=== PATIENT | female | born 1945 | race Caucasian/White ===

== ENCOUNTER 2019-03-04 10:11 | Emergency (ER) | payer OTHER ==
--- OUTSIDE RECORDS SUMMARY | 2019-03-04 10:37 | XMS REPORT ---
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
--- OUTSIDE RECORDS SUMMARY | 2019-03-04 10:37 | XMS REPORT ---
:1945 Author Organization eClinicalWorks Care Team Providers Name Role Phone Payton, Na Provider Role Unavailable Allergies, Adverse Reactions, Alerts Substance Reaction Event Type N.K.D.A. 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 Problem HTN (hypertension) I10 Active Problem Osteoarthritis of cervical spine, M47.812 Active unspecified spinal osteoarthritis complication status Problem Hyperlipidemia E78.5 Active Assessment Elevated blood pressure reading I10 Active with diagnosis of hypertension Problem Unspecified hearing loss H91.90 Active Problem 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
--- OUTSIDE RECORDS SUMMARY | 2019-03-04 10:37 | XMS REPORT ---
:1945 Author Organization eClinicalWorks Care Team Providers Name Role Phone Payton, Na Provider Role Unavailable Allergies, Adverse Reactions, Alerts Substance Reaction Event Type N.K.D.A. 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
--- OUTSIDE RECORDS SUMMARY | 2019-03-04 10:37 | XMS REPORT ---
:1945 Author Organization eClinicalWorks Care Team Providers Name Role Phone Payton, Na Provider Role Unavailable Allergies, Adverse Reactions, Alerts Substance Reaction Event Type N.K.D.A. 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 Problem HTN (hypertension) I10 Active Problem Osteoarthritis of cervical spine, M47.812 Active unspecified spinal osteoarthritis complication status Problem Hyperlipidemia E78.5 Active Assessment Elevated blood pressure reading I10 Active with diagnosis of hypertension Problem Unspecified hearing loss H91.90 Active Problem 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 Medications Medication Code Code Instructions Start End Status Dosage System Date Date Hydrochlorothiazide [facility] 32290533073 25 MG Orally Inactive TAKE 1 Once a day TABLET BY MOUTH ONCE A DAY Losartan Potassium ND 65097352858 25 MG Orally Mar 22, Inactive 1 tablet Once a day 2017 Diclofenac Sodium [facility] 01720002859 75 MG Active TAKE 1 TABLET BY MOUTH TWICE A DAY Simvastatin [facility] 64486033355 20 MG Orally Active TAKE 1 Once a day TABLET BY MOUTH EVERY DAY Losartan [facility] 05110210094 50-12.5 MG Sept Active 1 tablet Potassium-HCTZ Orally Once a 14, day 2018 Results No Known Results Immunizations Vaccine Administration Date FluAD May 03, 2018 Summary Purpose eClinicalWorks Submission
--- OUTSIDE RECORDS SUMMARY | 2019-03-04 10:37 | XMS REPORT ---
:1945 Author Organization eClinicalWorks Care Team Providers Name Role Phone Payton, Na Provider Role Unavailable Allergies, Adverse Reactions, Alerts Substance Reaction Event Type N.K.D.A. 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 Assessment Other fatigue R53.83 Active Assessment Dizziness R42 Active Problem HTN (hypertension) I10 Active Problem Osteoarthritis of cervical spine, M47.812 Active unspecified spinal osteoarthritis complication status Problem Hyperlipidemia E78.5 Active Assessment Elevated blood pressure reading I10 Active with diagnosis of hypertension Problem Unspecified hearing loss H91.90 Active Problem 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 Medications Medication Code Code Instructions Start End Status Dosage System Date Date Losartan [facility] 88561497763 50-12.5 MG Active 1 tablet Potassium-HCTZ Orally Once a day Simvastatin [facility] 72630475861 20 MG Orally Active TAKE 1 Once a day TABLET BY MOUTH EVERY DAY Results Name Result Date Reference Range Unit Abnormality Flag Lipid Profile ----HDL Cholesterol 46 69991719 40-60 mg/dL ----LDL Cholesterol, 64 21631338 <130 Calculated ----Cholesterol/HDL Ratio 3.26 20190211 ----Cholesterol Level 150 64300042 <200 mg/dL ----Triglycerides Level 198 69439125 <150 mg/dL H Hemoglobin A1c CBC with Automated Diff ----Basophils % 1.1 07472291 0-1.3 % ----Eosinophils % 3.3 69571744 0-4.4 % ----Absolute Lymphocytes 2.0 09356737 0.7-4.9 (CBC) ----Absolute Neutrophil 2.4 24461849 1.8-8.0 ----Red Cell Distribution 14.0 41931213 12.1-15.2 % Width ----Absolute Eosinophils 0.2 23938823 0-0.5 ----Platelets 205 73003505 152-406 ----Absolute Monocytes 0.8 60287380 0.1-1.3 ----MCHC 33.5 45527371 32.0-36.0 g/dL ----MCH 31.0 66820949 27.0-35.0 pg ----MCV 92.5 20190211 80-100 fL ----Neutrophils % 43.5 50588395 41.7-73.7 % ----MPV 9.6 33453249 7.6-11.3 fL ----Monocytes % 15.3 95113457 3.3-12.3 % H ----Lymphocytes % 36.8 02503550 15.3-44.8 % ----Absolute Basophils 0.1 33724827 0-0.5 ----White Blood Count 5.5 20190211 4.3-10.9 ----RBC Red Blood Cell Count 4.58 20190211 3.86-4.86 M/ul ----Hemoglobin 14.2 82537915 12.0-15.0 g/dL ----Hematocrit 42.4 75300590 36.0-45.0 % Comprehensive Metabolic Panel ----Creatinine 0.78 20190211 0.55-1.3 mg/dL ----BUN Blood Urea Nitrogen 15 20190211 7-18 mg/dL ----AST/SGOT 19 20190211 15-37 U/L ----Glomerular Filtration 73 20190211 =/>90 mL L Rate ----Alkaline Phosphatase 54 20190211 45-117 U/L ----Bilirubin Total 0.5 81981488 0.2-1.0 mg/dL ----ALT/SGPT 25 20190211 12-78 U/L ----Albumin 3.7 62005470 3.4-5.0 g/dL ----Bicarbonate 27 20190211 21-32 mmol/L ----Globulin 4.1 24564513 2.3-3.5 g/dL H ----Glucose Level 120 82874605 74-106 mg/dL H ----Calcium Level 8.9 16687517 8.5-10.1 mg/dL ----Potassium 3.7 20190211 3.5-5.1 mmol/L ----Protein, Total 7.8 20190211 6.4-8.2 g/dL ----Chloride Level 108 20190211 98-107 mmol/L H ----Sodium Level 142 20190211 136-145 mmol/L ----Albumin/Globulin Ratio 0.9 20190211 1.1-1.8 L TSH Thyroid Stimulating Hormone ----Thyroid Stimulating 3.210 20190211 0.360-3.740 [iU]/L Hormone Summary Purpose eClinicalWorks Submission
--- OUTSIDE RECORDS SUMMARY | 2019-03-04 10:37 | XMS REPORT ---
[...] Medications Medication Code Code Instructions Start End Date Status Dosage System Date Losartan [facility] 10086704767 50-12.5 MG May 03, Active 1 tablet Potassium-HCTZ Orally Once a 2017 day Results No Known Results Summary Purpose eClinicalWorks Submission
--- OUTSIDE RECORDS SUMMARY | 2019-03-04 10:37 | XMS REPORT ---
:1945 Author Organization eClinicalWorks Care Team Providers Name Role Phone Tata, Deana Provider Role Unavailable Allergies, Adverse Reactions, Alerts Substance Reaction Event Type N.K.D.A. 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 Problem HTN (hypertension) I10 Active Problem Osteoarthritis of cervical spine, M47.812 Active unspecified spinal osteoarthritis complication status Problem Hyperlipidemia E78.5 Active Assessment Elevated blood pressure reading I10 Active with diagnosis of hypertension Problem Unspecified hearing loss H91.90 Active Problem 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 Medications Medication Code Code Instructions Start End Status Dosage System Date Date Diclofenac Sodium [facility] 94262748761 75 MG Active TAKE 1 TABLET BY MOUTH TWICE A DAY Losartan Potassium [facility] 56330821538 25 MG Orally Mar 22, Active 1 tablet Once a day 2017 Simvastatin [facility] 88244599268 20 MG Orally Active TAKE 1 Once a day TABLET BY MOUTH EVERY DAY Hydrochlorothiazide [facility] 19175587084 25 MG Orally Active TAKE 1 Once a day TABLET BY MOUTH ONCE A DAY Results Name Result Date Reference Range Unit Abnormality Flag Lipid Profile ----HDL Cholesterol 43 47849794 40-60 mg/dL ----LDL Cholesterol, 72 70160731 <130 Calculated ----Cholesterol/HDL Ratio 3.49 85149759 ----Cholesterol Level 150 38881101 <200 mg/dL ----Triglycerides Level 177 81564650 <150 mg/dL H CBC with Automated Diff ----Basophils % 0.9 97086475 0-1.3 % ----Eosinophils % 2.9 65318248 0-4.4 % ----Absolute Lymphocytes 1.8 17804217 0.7-4.9 (CBC) ----Absolute Neutrophil 5.5 89301641 1.8-8.0 ----Red Cell Distribution 14.0 05117014 12.1-15.2 % Width ----Absolute Eosinophils 0.3 73049338 0-0.5 ----Platelets 212 98761057 152-406 ----Absolute Monocytes 1.0 46451917 0.1-1.3 ----MCHC 34.6 54652775 32.0-36.0 g/dL ----MCH 31.7 09331860 27.0-35.0 pg ----MCV 91.7 70875109 80-100 fL ----Neutrophils % 63.4 69729212 41.7-73.7 % ----MPV 9.7 01945289 7.6-11.3 fL ----Monocytes % 11.5 85937702 3.3-12.3 % ----Lymphocytes % 21.3 47070078 15.3-44.8 % ----Absolute Basophils 0.1 28366445 0-0.5 ----White Blood Count 8.7 71775899 4.3-10.9 ----RBC Red Blood Cell Count 4.49 85245868 3.86-4.86 M/ul ----Hemoglobin 14.2 20985428 12.0-15.0 g/dL ----Hematocrit 41.2 82193544 36.0-45.0 % Comprehensive Metabolic Panel ----Creatinine 0.80 17755851 0.55-1.3 mg/dL ----BUN Blood Urea Nitrogen 10 55523167 7-18 mg/dL ----AST/SGOT 25 76225065 15-37 U/L ----Glomerular Filtration 71 67978320 =/>90 mL L Rate ----Alkaline Phosphatase 63 75893708 45-117 U/L ----Bilirubin Total 0.5 80531985 0.2-1.0 mg/dL ----ALT/SGPT 24 49655061 12-78 U/L ----Albumin 3.6 84914070 3.4-5.0 g/dL ----Bicarbonate 29 91429828 21-32 mmol/L ----Globulin 3.9 43925365 2.3-3.5 g/dL H ----Glucose Level 135 71607227 74-106 mg/dL H ----Potassium 3.6 20180325 3.5-5.1 mmol/L ----Calcium Level 8.8 20180325 8.5-10.1 mg/dL ----Protein, Total 7.5 20180325 6.4-8.2 g/dL ----Chloride Level 106 20180325 98-107 mmol/L ----Sodium Level 143 20180325 136-145 mmol/L ----Albumin/Globulin Ratio 0.9 20180325 1.1-1.8 L Summary Purpose eClinicalWorks Submission
--- OUTSIDE RECORDS SUMMARY | 2019-03-04 10:37 | XMS REPORT ---
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
--- NOTE | 2019-03-04 11:07 | EKG ---
Test Date: 2019-03-04 Test Time: 10:22:43 Cartography Professor: SIVAN MEASUREMENT RESULTS: Intervals: Rate: 75 ME: 164 QRSD: 118 QT: 402 QTc: 448 [place]: P: 56 ME: 164 QRS: -20 T: 42 INTERPRETIVE STATEMENTS: Normal sinus rhythm Low voltage QRS Right bundle branch block Abnormal ECG Compared to ECG 02/19/2017 08:50:58 No significant changes Electronically Signed On 03-04-19 11:07:04 CDT by Juno Carpio
[2019-03-04 12:01] LABS: Protime INR 1.06
[2019-03-04 12:03] LABS: Absolute Lymphocytes (CBC) 1.7 K/uL (0.7-4.9); Basophils % 0.9 % (0-1.3); Eosinophils % 2.3 % (0-4.4); Hematocrit 39.9 % (36.0-45.0); MPV 9.6 fL (7.6-11.3); Monocytes % 15.6 % (3.3-12.3)
[2019-03-04 12:16] LABS: ALT/SGPT 24 U/L (12-78); AST/SGOT 21 U/L (15-37); Albumin 3.7 g/dL (3.4-5.0); Alkaline Phosphatase 57 U/L (45-117); BUN Blood Urea Nitrogen 13 mg/dL (7-18); Bicarbonate 27 mmol/L (21-32); Bilirubin Direct 0.2 mg/dL (0-0.2); Bilirubin Total 0.5 mg/dL (0.2-1.0); Glucose Level 102 mg/dL (74-106); Magnesium 2.4 mg/dL (1.8-2.4); NT PRO-BNP 46 pg/mL (<125); Potassium 3.6 mmol/L (3.5-5.1); Protein, Total 7.7 g/dL (6.4-8.2); Sodium Level 139 mmol/L (136-145); Troponin (Emerg Dept Use Only) < 0.02 ng/mL (0.0-0.045)
[2019-03-04 12:26] LABS: Blood Morphology Comment NOT SEEN (NOT SEEN); Platelet Estimate ADEQ; Urine White Blood Cell Casts OK
--- NOTE | 2019-03-04 12:27 | RAD REPORT ---
EXAM DESCRIPTION: RAD - Chest Single View - 03/04/2019 12:22 pm CLINICAL HISTORY: Chest pain;Cough Chest pain. COMPARISON: CHEST SINGLE VIEW dated 03/30/2014; CHEST SINGLE VIEW dated 10/02/2013; CHEST SINGLE VIEW dated 01/06/2013; CHEST SINGLE VIEW dated 01/07/2010 FINDINGS: Portable technique limits examination quality. The lungs are grossly clear. The heart is normal in size. No displaced fractures. IMPRESSION: No acute intrathoracic process suspected.
--- NOTE | 2019-03-04 14:07 | ER ---
Nurse's Notes [facility] Name: Afsaneh Wilkes Age: 73 yrs Sex: Female : 1945 Arrival Date: 03/04/2019 Time: 10:16 Bed 16 Private MD: Deana Payton Diagnosis: Acute bronchitis Presentation: 03/04 10:19 Presenting complaint: Patient states: i have this chest pain that started yesterday, hj the pain moves to my back and i have a cough; denies fever and chills; reports cough and SOB;. Transition of care: patient was not received from another setting of care. Onset of symptoms was March 04, 2019. Risk Assessment: Do you want to hurt yourself or someone else? Patient reports no desire to harm self or others. Initial Sepsis Screen: Does the patient meet any 2 criteria? No. Patient's initial sepsis screen is negative. Does the patient have a suspected source of infection? No. Patient's initial sepsis screen is negative. Care prior to arrival: None. 10:19 Method Of Arrival: Ambulatory 10:19 Acuity: BENITO 3 hj Historical: - Allergies: 10:20 No Known Drug Allergies; hj - PMHx: 10:20 Hyperlipidemia; Hypertension; hj - PSHx: 10:20 None; hj - Immunization history:: Adult Immunizations up to date. - Social history:: Smoking status: unknown. - Ebola Screening: : No symptoms or risks identified at this time. Screenin:21 Abuse screen: Denies threats or abuse. Nutritional screening: No deficits noted. la1 Tuberculosis screening: No symptoms or risk factors identified. Fall Risk None identified. Assessment: 11:19 General: Appears in no apparent distress. Behavior is calm, cooperative. Pain: la1 Complains of pain in back Pain radiates to chest Pain currently is 7 out of 10 on a pain scale. Quality of pain is described as sharp, stabbing, Pain began 1 day ago. Neuro: Level of Consciousness is awake, alert, obeys commands, Oriented to person, place, time, situation. Cardiovascular: Heart tones S1 S2 present Capillary refill < 3 seconds Patient's skin is warm and dry. Respiratory: Airway is patent Respiratory effort is even, unlabored, Respiratory pattern is regular, symmetrical, Breath sounds are clear bilaterally. GI: No signs and/or symptoms were reported involving the gastrointestinal system. : No signs and/or symptoms were reported regarding the genitourinary system. 12:45 Reassessment: Patient appears in no apparent distress at this time. No changes from la1 previously documented assessment. Patient and/or family updated on plan of care and expected duration. Pain level reassessed. Patient is alert, oriented x 3, equal unlabored respirations, skin warm/dry/pink. 13:58 Reassessment: Patient appears in no apparent distress at this time. No changes from la1 previously documented assessment. Patient and/or family updated on plan of care and expected duration. Pain level reassessed. Patient is alert, oriented x 3, equal unlabored respirations, skin warm/dry/pink. Vital Signs: 10:21 BP 141 / 69; Pulse 78; Resp 20; Temp 97.4(TE); Pulse Ox 96% on R/A; Weight 81.65 kg; hj Height 5 ft. 4 in. (162.56 cm); Pain 6/10; 11:59 BP 148 / 77; Pulse 65; Resp 20; Pulse Ox 92% on R/A; la1 12:45 BP 138 / 76; Pulse 76; Resp 16; Pulse Ox 94% on R/A; la1 13:07 BP 142 / 77; Pulse 76; Resp 16; Pulse Ox 92% on R/A; la1 14:04 Pulse Ox 96% on R/A; la1 14:16 BP 126 / 74; Pulse 71; Resp 16; Pulse Ox 98% on R/A; la1 10:21 Body Mass Index 30.90 (81.65 kg, 162.56 cm) ED Course: 10:16 Patient arrived in ED. dp 10:17 Deana Payton MD is Private Physician. dp 10:20 Triage completed. hj 10:20 Arm band placed on right wrist. hj 11:05 Charbel Johns MD is Attending Physician. gs 11:08 Patricio Suresh, RN is Primary Nurse. la1 11:22 Placed in gown. Bed in low position. Call light in reach. monitor and storage bin tender on. Pulse ox la1 on. NIBP on. 11:22 No provider procedures requiring assistance completed. Patient maintains SpO2 la1 saturation greater than 95% on room air. 11:39 Initial lab(s) drawn, by me, sent to lab. Inserted saline lock: 22 gauge in left dh3 forearm, using aseptic technique. Blood collected. 12:24 XRAY Chest (1 view) In Process Unspecified. EDMS 12:25 X-ray completed. Portable x-ray completed in exam room. Patient tolerated procedure sw well. 14:17 IV discontinued, intact, bleeding controlled, No redness/swelling at site. Pressure la1 dressing applied. Administered Medications: No medications were administered Outcome: 14:06 Discharge ordered by . jaclyn 14:17 Discharged to home ambulatory. la1 14:17 Condition: stable 14:17 Discharge instructions given to patient, Instructed on discharge instructions, follow up and referral plans. Demonstrated understanding of instructions, follow-up care. 14:17 Patient left the ED. la1 Signatures: Dispatcher [employer] EDMS Patricio Suresh RN RN laDorothea Shipman Henry, RN RN hj Herrera, Deanna [facility] Charbel Johns MD MD gs Pena, Darian dp
--- NOTE | 2019-03-04 14:07 | EDPHYS ---
Physician Documentation [facility] Name: Afsaneh Wilkes Age: 73 yrs Sex: Female : 1945 Arrival Date: 03/04/2019 Time: 10:16 Bed 16 Private MD: Deana Payton ED Physician Charbel Johns HPI: 03/04 15:34 This 73 yrs old Female presents to ER via Ambulatory with complaints of Chest gs Pain, Back Pain, Cough. 15:34 The patient or guardian reports chest pain that is located primarily in the anterior gs chest wall, left. Onset: 2 day(s) ago. The pain does not radiate. Associated signs and symptoms: Pertinent positives: cough. The chest pain is described as sharp. Duration: The patient or guardian reports multiple episodes, that wax and wane. Modifying factors: the symptoms are aggravated by cough, palpation of area, twisting torso, left upper back. Severity of pain: At its worst the pain was moderate in the emergency department the pain is unchanged. The patient has experienced similar episodes in the past, a few times. Historical: - Allergies: 10:20 No Known Drug Allergies; hj - PMHx: 10:20 Hyperlipidemia; Hypertension; hj - PSHx: 10:20 None; hj - Immunization history:: Adult Immunizations up to date. - Social history:: Smoking status: unknown. - Ebola Screening: : No symptoms or risks identified at this time. ROS: 15:34 Constitutional: Negative for fever. gs 15:34 Respiratory: Negative for shortness of breath. 15:34 All other systems are negative. Exam: 15:34 Constitutional: The patient appears alert, awake. gs 15:38 Head/Face: Normocephalic, atraumatic. Eyes: Pupils equal round and reactive to light, gs extra-ocular motions intact. Lids and lashes normal. Conjunctiva and sclera are non-icteric and not injected. Cornea within normal limits. Periorbital areas with no swelling, redness, or edema. ENT: Nares patent. No nasal discharge, no septal abnormalities noted. Tympanic membranes are normal and external auditory canals are clear. Oropharynx with no redness, swelling, or masses, exudates, or evidence of obstruction, uvula midline. Mucous membranes moist. Neck: Trachea midline, no thyromegaly or masses palpated, and no cervical lymphadenopathy. Supple, full range of motion without nuchal rigidity, or vertebral point tenderness. No Meningismus. Chest/axilla: Normal chest wall appearance and motion. Nontender with no deformity. No lesions are appreciated. Cardiovascular: Regular rate and rhythm with a normal S1 and S2. No gallops, murmurs, or rubs. Normal PMI, no JVD. No pulse deficits. Respiratory: Lungs have equal breath sounds bilaterally, clear to auscultation and percussion. No rales, rhonchi or wheezes noted. No increased work of breathing, no retractions or nasal flaring. Abdomen/GI: Soft, non-tender, with normal bowel sounds. No distension or tympany. No guarding or rebound. No evidence of tenderness throughout. Skin: Warm, dry with normal turgor. Normal color with no rashes, no lesions, and no evidence of cellulitis. MS/ Extremity: Pulses equal, no cyanosis. Neurovascular intact. Full, normal range of motion. Neuro: Awake and alert, GCS 15, oriented to person, place, time, and situation. Cranial nerves II-XII grossly intact. Motor strength 5/5 in all extremities. Sensory grossly intact. Cerebellar exam normal. Normal gait. 15:38 ECG was reviewed by the Attending Physician. 15:38 Back: pain, that is moderate, of the left scapular area, 100% reproducible with palpation. Vital Signs: 10:21 BP 141 / 69; Pulse 78; Resp 20; Temp 97.4(TE); Pulse Ox 96% on R/A; Weight 81.65 kg; hj Height 5 ft. 4 in. (162.56 cm); Pain 6/10; 11:59 BP 148 / 77; Pulse 65; Resp 20; Pulse Ox 92% on R/A; la1 12:45 BP 138 / 76; Pulse 76; Resp 16; Pulse Ox 94% on R/A; la1 13:07 BP 142 / 77; Pulse 76; Resp 16; Pulse Ox 92% on R/A; la1 14:04 Pulse Ox 96% on R/A; la1 14:16 BP 126 / 74; Pulse 71; Resp 16; Pulse Ox 98% on R/A; la1 10:21 Body Mass Index 30.90 (81.65 kg, 162.56 cm) MDM: 11:29 Patient medically screened. gs 15:38 Differential diagnosis: coronary artery disease chest wall pain, pneumonia. Data reviewed: vital signs, nurses notes, lab test result(s), EKG, radiologic studies. Counseling: I had a detailed discussion with the patient and/or guardian regarding: the historical points, exam findings, and any diagnostic results supporting the discharge/admit diagnosis, lab results, radiology results. Response to treatment: the patient's symptoms have resolved after treatment, the patient's pain is gone, the patient's condition has returned to base line. 03/04 11:30 Order name: Basic Metabolic Panel 03/04 11:30 Order name: CBC with Diff 03/04 11:30 Order name: LFT's; Complete Time: 13:54 03/04 11:30 Order name: Magnesium; Complete Time: 13:54 03/04 11:30 Order name: NT PRO-BNP; Complete Time: 13:54 03/04 11:30 Order name: PT-INR; Complete Time: 13:54 03/04 10:44 Order name: EKG; Complete Time: 10:46 03/04 11:30 Order name: Troponin (emerg Dept Use Only); Complete Time: 13:54 03/04 11:30 Order name: XRAY Chest (1 view); Complete Time: 13:54 03/04 11:30 Order name: Cardiac monitoring; Complete Time: 11:46 03/04 11:30 Order name: IV Saline Lock; Complete Time: 11:46 03/04 11:31 Order name: Basic Metabolic Panel; Complete Time: 13:54 EDAK 03/04 11:31 Order name: CBC with Automated Diff; Complete Time: 13:54 EDAK 03/04 12:07 Order name: CBC Smear Scan; Complete Time: 13:54 [facility] 03/04 11:30 Order name: Labs collected and sent; Complete Time: 11:46 03/04 11:30 Order name: O2 Per Protocol; Complete Time: 11:46 03/04 11:30 Order name: O2 Sat Monitoring; Complete Time: 11:46 EC:38 Rate is 75 beats/min. Rhythm is regular. PA interval is normal. QRS interval is gs prolonged. T waves are Normal. No ST changes noted. Clinical impression: Abnormal EKG without significant change. Interpreted by me. Administered Medications: No medications were administered Disposition: 03/04/19 14:06 Discharged to Home. Impression: Acute bronchitis. - Condition is Stable. - Discharge Instructions: Acute Bronchitis, Adult. - Medication Reconciliation Form, Thank You Letter, Antibiotic Education, Prescription Opioid Use form. - Follow up: Private Physician; When: 2 - 3 days; Reason: Re-evaluation by your physician. Signatures: Dispatcher [employer] EDAK Patricio Suresh RN RN la1 Lloyd Moss RN RN Charbel Johns MD MD Corrections: (The following items were deleted from the chart) 14:17 14:06 03/04/2019 14:06 Discharged to Home. Impression: Acute bronchitis. Condition is la1 Stable. Forms are Medication Reconciliation Form, Thank You Letter, Antibiotic Education, Prescription Opioid Use. Follow up: Private Physician; When: 2 - 3 days; Reason: Re-evaluation by your physician. gs
== END 2019-03-04 14:17 | disposition home or self-care (01) ==
LOC: ER 10:11
DX: J20.9 Acute bronchitis, unspecified (principal); E78.5 Hyperlipidemia, unspecified; I10 Essential (primary) hypertension
CPT/HCPCS: 36415; 71045; 80048; 80076; 83735; 83880; 84484; 85025; 85610; 93005; 99285

== ENCOUNTER 2023-05-06 07:07 | Emergency (ER) | payer OTHER ==
--- OUTSIDE RECORDS SUMMARY | 2023-05-06 07:11 | XMS REPORT | Continuity of Care Document ---
:1945 Author Organization [facility] t Address [address] [facility]. [address] [place] [address] Care Team Providers Name Role Phone Kohi Mcmanus Attending Clinician Unavailable Deana Payton Attending Clinician Unavailable Payers Payer Name Policy Type Policy Number Effective Date Expiration Date S maria del carmen MEDICARE MB [id number] 2011 [facility] NOVITAS 00:00:[address] [facility] MEDICARE MB [id number] 2011 [facility] NOVITAS 00:00:[address] [facility] MEDICARE MB [id number] 2011 [facility] NOVITAS 00:00:00 [facility] Problems Condition Condition Condition Status Onset Resolution Last Treating Co mments Source Name Details Category Date Date Treatment Clinician Date [id number] Body mass Problem Com mon index Spirit [BMI] - [facility] 32.0-32.9, [facility] [id number] Non-season Problem Com mon al [facility] allergic - [facility] rhinitis, [facility] [id number] Primary Problem Commo n osteoarthr Spirit itis - [facility] involving [facility] Hearing Unspecifie Problem Comm on loss d hearing Spirit loss - [facility] 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 n exam [facility] [id number] Bilateral Problem Com mon deafness [facility] Prediabete Prediabete Problem C kei gutierres [facility] Hyperlipid Hyperlipid Problem C kei guzmán [facility] Primary Primary Problem Common osteoarthr osteoarthr Sp desi itis itis - [facility] involving [facility] Bilateral Tinnitus Problem Comm on tinnitus of both [facility] ears [facility] [id number] Hypothyroi Problem Co mmon dism [facility] (acquired) [facility] Allergies, Adverse Reactions, Alerts This patient has no known allergies or adverse reactions. Social History Social Habit Start Date Stop Date Quantity Comments Source History of Tobacco Use Co mmon [facility] Sex Assigned At Com mon [facility] Smoking Status Start Date Stop Date Source Former Smoker 2023-02-12 00:00:00 2023-02-12 00:00:00 [facility] Never Smoker Common [facility] Medications Ordered Filled Start Stop Current Ordering Indication Dosage Frequency Signature Comments Components Source Medication Medication Date Date Medication? Clinician (SIG) Name Name Gerda Lorenz 2020- No Na Payton 1 capsule Common 03-18 with food Spirit 00:00: 00:00 - 00 :00 [facility] Levothyroxi Levothyroxi 2019-0 Yes Na Payton 1 tablet Common ne Sodium ne Sodium 5-19 in the Spi rit 00:00: morning on - 00 an empty [facility] Metoprolol Metoprolol 2019-0 Yes Na Payton 1 tablet Common Tartrate Tartrate 2 with food Sp desi 00:00: - 00 [facility] Cetirizine Cetirizine 2018-08 2020- No Na Payton 1 tablet Common HCl HCl 2-20 02-03 Spirit 00:00: 00:00 - [facility] 00 :00 [facility] Simvastatin Simvastatin Yes Na Payton TAKE 1 Common TABLET BY Spirit MOUTH [facility] EVERY DAY [facility] Losartan Losartan Yes Na Payton 1 tablet Common Potassium Potassium Spiri t [facility] Flonase Flonase Yes Na Payton 2 spray in Common each Spirit nostril - [facility] Losartan Losartan No 1{table BID Losartan Potassium Potassium t} Potassium 50 MG 50 MG 50 MG Simvastatin Simvastatin No QD Simvastati 20 MG 20 MG n 20 MG Levothyroxi Levothyroxi No QD Levothyrox ne Sodium ne Sodium ine Sodium 75 MCG 75 MCG 75 MCG Vitamin D3 Vitamin D3 No Vitamin D3 Flonase 50 Flonase 50 No 2{spray QD Flonase 50 MCG/ACT MCG/ACT _in_eac MCG/ACT h_nostr il} Metoprolol Metoprolol No 1{table BID Metoprolol Tartrate 25 Tartrate 25 t_with_ Tartrate MG MG food} 25 MG Metoprolol Metoprolol No Metoprolol Tartrate 25 Tartrate 25 Tartrate MG MG 25 MG Flonase 50 Flonase 50 No 2{spray QD Flonase 50 MCG/ACT MCG/ACT _in_eac MCG/ACT h_nostr il} Metoprolol Metoprolol No 1{table BID Metoprolol Tartrate 25 Tartrate 25 t_with_ Tartrate MG MG food} 25 MG Losartan Losartan No 1{table BID Losartan Potassium Potassium t} Potassium 50 MG 50 MG 50 MG Vitamin D3 Vitamin D3 No Vitamin D3 Levothyroxi Levothyroxi No Levothyrox ne Sodium ne Sodium ine Sodium 75 MCG 75 MCG 75 MCG Cetirizine Cetirizine No Cetirizine HCl 10 MG HCl 10 MG HCl 10 MG Simvastatin Simvastatin No QD Simvastati 20 MG 20 MG n 20 MG Levothyroxi Levothyroxi No QD Levothyrox ne Sodium ne Sodium ine Sodium 75 MCG 75 MCG 75 MCG Metoprolol Metoprolol No Metoprolol Tartrate 25 Tartrate 25 Tartrate MG MG 25 MG Flonase 50 Flonase 50 No 2{spray QD Flonase 50 MCG/ACT MCG/ACT _in_eac MCG/ACT h_nostr il} Metoprolol Metoprolol No 1{table BID Metoprolol Tartrate 25 Tartrate 25 t_with_ Tartrate MG MG food} 25 MG Losartan Losartan No 1{table BID Losartan Potassium Potassium t} Potassium 50 MG 50 MG 50 MG Vitamin D3 Vitamin D3 No Vitamin D3 Levothyroxi Levothyroxi No Levothyrox ne Sodium ne Sodium ine Sodium 75 MCG 75 MCG 75 MCG Cetirizine Cetirizine No Cetirizine HCl 10 MG HCl 10 MG HCl 10 MG Simvastatin Simvastatin No QD Simvastati 20 MG 20 MG n 20 MG Levothyroxi Levothyroxi No QD Levothyrox ne Sodium ne Sodium ine Sodium 75 MCG 75 MCG 75 MCG Losartan Losartan No Losartan Potassium Potassium Potassium 50 MG 50 MG 50 MG Metoprolol Metoprolol No 1{table BID Metoprolol Tartrate 25 Tartrate 25 t_with_ Tartrate MG MG food} 25 MG Levothyroxi Levothyroxi No Levothyrox ne Sodium ne Sodium ine Sodium 75 MCG 75 MCG 75 MCG Flonase 50 Flonase 50 No 2{spray QD Flonase 50 MCG/ACT MCG/ACT _in_eac MCG/ACT h_nostr il} Metoprolol Metoprolol No Metoprolol Tartrate 25 Tartrate 25 Tartrate MG MG 25 MG Cetirizine Cetirizine No Cetirizine HCl 10 MG HCl 10 MG HCl 10 MG Simvastatin Simvastatin No QD Simvastati 20 MG 20 MG n 20 MG Vitamin D3 Vitamin D3 No Vitamin D3 Losartan Losartan No Losartan Potassium Potassium Potassium 50 MG 50 MG 50 MG Metoprolol Metoprolol No 1{table BID Metoprolol Tartrate 25 Tartrate 25 t_with_ Tartrate MG MG food} 25 MG Levothyroxi Levothyroxi No Levothyrox ne Sodium ne Sodium ine Sodium 75 MCG 75 MCG 75 MCG Flonase 50 Flonase 50 No 2{spray QD Flonase 50 MCG/ACT MCG/ACT _in_eac MCG/ACT h_nostr il} Metoprolol Metoprolol No Metoprolol Tartrate 25 Tartrate 25 Tartrate MG MG 25 MG Cetirizine Cetirizine No Cetirizine HCl 10 MG HCl 10 MG HCl 10 MG Simvastatin Simvastatin No QD Simvastati 20 MG 20 MG n 20 MG Vitamin D3 Vitamin D3 No Vitamin D3 Losartan Losartan No Losartan Potassium Potassium Potassium 50 MG 50 MG 50 MG Metoprolol Metoprolol No 1{table BID Metoprolol Tartrate 25 Tartrate 25 t_with_ Tartrate MG MG food} 25 MG Levothyroxi Levothyroxi No Levothyrox ne Sodium ne Sodium ine Sodium 75 MCG 75 MCG 75 MCG Flonase 50 Flonase 50 No 2{spray QD Flonase 50 MCG/ACT MCG/ACT _in_eac MCG/ACT h_nostr il} Metoprolol Metoprolol No Metoprolol Tartrate 25 Tartrate 25 Tartrate MG MG 25 MG Cetirizine Cetirizine No Cetirizine HCl 10 MG HCl 10 MG HCl 10 MG Simvastatin Simvastatin No QD Simvastati 20 MG 20 MG n 20 MG Vitamin D3 Vitamin D3 No Vitamin D3 Flonase 50 Flonase 50 No 2{spray QD Flonase 50 MCG/ACT MCG/ACT _in_eac MCG/ACT h_nostr il} Metoprolol Metoprolol No 1{table BID Metoprolol Tartrate 25 Tartrate 25 t_with_ Tartrate MG MG food} 25 MG Simvastatin Simvastatin No QD Simvastati 20 MG 20 MG n 20 MG Losartan Losartan No 1{table BID Losartan Potassium Potassium t} Potassium 50 MG 50 MG 50 MG Simvastatin Simvastatin No Simvastati 20 MG 20 MG n 20 MG Metoprolol Metoprolol No Metoprolol Tartrate 25 Tartrate 25 Tartrate MG MG 25 MG Levothyroxi Levothyroxi No QD Levothyrox ne Sodium ne Sodium ine Sodium 75 MCG 75 MCG 75 MCG Vitamin D3 Vitamin D3 No Vitamin D3 Cetirizine Cetirizine No Cetirizine HCl 10 MG HCl 10 MG HCl 10 MG Levothyroxi Levothyroxi No Levothyrox ne Sodium ne Sodium ine Sodium 75 MCG 75 MCG 75 MCG Losartan Losartan No Losartan Potassium Potassium Potassium 50 MG 50 MG 50 MG Flonase 50 Flonase 50 No 2{spray QD Flonase 50 MCG/ACT MCG/ACT _in_eac MCG/ACT h_nostr il} Metoprolol Metoprolol No 1{table BID Metoprolol Tartrate 25 Tartrate 25 t_with_ Tartrate MG MG food} 25 MG Simvastatin Simvastatin No QD Simvastati 20 MG 20 MG n 20 MG Losartan Losartan No 1{table BID Losartan Potassium Potassium t} Potassium 50 MG 50 MG 50 MG Simvastatin Simvastatin No Simvastati 20 MG 20 MG n 20 MG Metoprolol Metoprolol No Metoprolol Tartrate 25 Tartrate 25 Tartrate MG MG 25 MG Levothyroxi Levothyroxi No QD Levothyrox ne Sodium ne Sodium ine Sodium 75 MCG 75 MCG 75 MCG Vitamin D3 Vitamin D3 No Vitamin D3 Cetirizine Cetirizine No Cetirizine HCl 10 MG HCl 10 MG HCl 10 MG Levothyroxi Levothyroxi No Levothyrox ne Sodium ne Sodium ine Sodium 75 MCG 75 MCG 75 MCG Losartan Losartan No Losartan Potassium Potassium Potassium 50 MG 50 MG 50 MG Levothyroxi Levothyroxi No Levothyrox ne Sodium ne Sodium ine Sodium 75 MCG 75 MCG 75 MCG Metoprolol Metoprolol No 1{table BID Metoprolol Tartrate 25 Tartrate 25 t_with_ Tartrate MG MG food} 25 MG Vitamin D3 Vitamin D3 No Vitamin D3 Flonase 50 Flonase 50 No 2{spray QD Flonase 50 MCG/ACT MCG/ACT _in_eac MCG/ACT h_nostr il} Losartan Losartan No Losartan Potassium Potassium Potassium 50 MG 50 MG 50 MG Simvastatin Simvastatin No Simvastati 20 MG 20 MG n 20 MG Levothyroxi Levothyroxi No QD Levothyrox ne Sodium ne Sodium ine Sodium 75 MCG 75 MCG 75 MCG Losartan Losartan No 1{table BID Losartan Potassium Potassium t} Potassium 50 MG 50 MG 50 MG Metoprolol Metoprolol No Metoprolol Tartrate 25 Tartrate 25 Tartrate MG MG 25 MG Simvastatin Simvastatin No QD Simvastati 20 MG 20 MG n 20 MG Cetirizine Cetirizine No Cetirizine HCl 10 MG HCl 10 MG HCl 10 MG Losartan Losartan No 1{table BID Losartan Potassium Potassium t} Potassium 50 MG 50 MG 50 MG Levothyroxi Levothyroxi No QD Levothyrox ne Sodium ne Sodium ine Sodium 75 MCG 75 MCG 75 MCG Losartan Losartan No Losartan Potassium Potassium Potassium 50 MG 50 MG 50 MG Simvastatin Simvastatin No Simvastati 20 MG 20 MG n 20 MG Metoprolol Metoprolol No 1{table BID Metoprolol Tartrate 25 Tartrate 25 t_with_ Tartrate MG MG food} 25 MG Levothyroxi Levothyroxi No Levothyrox ne Sodium ne Sodium ine Sodium 25 MCG 25 MCG 25 MCG Simvastatin Simvastatin No QD Simvastati 20 MG 20 MG n 20 MG Cetirizine Cetirizine No Cetirizine HCl 10 MG HCl 10 MG HCl 10 MG Flonase 50 Flonase 50 No 2{spray QD Flonase 50 MCG/ACT MCG/ACT _in_eac MCG/ACT h_nostr il} Losartan Losartan No 1{table BID Losartan Potassium Potassium t} Potassium 50 MG 50 MG 50 MG Levothyroxi Levothyroxi No QD Levothyrox ne Sodium ne Sodium ine Sodium 75 MCG 75 MCG 75 MCG Losartan Losartan No Losartan Potassium Potassium Potassium 50 MG 50 MG 50 MG Simvastatin Simvastatin No Simvastati 20 MG 20 MG n 20 MG Metoprolol Metoprolol No 1{table BID Metoprolol Tartrate 25 Tartrate 25 t_with_ Tartrate MG MG food} 25 MG Levothyroxi Levothyroxi No Levothyrox ne Sodium ne Sodium ine Sodium 25 MCG 25 MCG 25 MCG Simvastatin Simvastatin No QD Simvastati 20 MG 20 MG n 20 MG Cetirizine Cetirizine No Cetirizine HCl 10 MG HCl 10 MG HCl 10 MG Flonase 50 Flonase 50 No 2{spray QD Flonase 50 MCG/ACT MCG/ACT _in_eac MCG/ACT h_nostr il} Losartan Losartan No 1{table BID Losartan Potassium Potassium t} Potassium 50 MG 50 MG 50 MG Levothyroxi Levothyroxi No QD Levothyrox ne Sodium ne Sodium ine Sodium 75 MCG 75 MCG 75 MCG Losartan Losartan No Losartan Potassium Potassium Potassium 50 MG 50 MG 50 MG Simvastatin Simvastatin No Simvastati 20 MG 20 MG n 20 MG Metoprolol Metoprolol No 1{table BID Metoprolol Tartrate 25 Tartrate 25 t_with_ Tartrate MG MG food} 25 MG Levothyroxi Levothyroxi No Levothyrox ne Sodium ne Sodium ine Sodium 25 MCG 25 MCG 25 MCG Simvastatin Simvastatin No QD Simvastati 20 MG 20 MG n 20 MG Cetirizine Cetirizine No Cetirizine HCl 10 MG HCl 10 MG HCl 10 MG Flonase 50 Flonase 50 No 2{spray QD Flonase 50 MCG/ACT MCG/ACT _in_eac MCG/ACT h_nostr il} Immunizations Ordered Immunization Filled Immunization Date Status Commen ts Source Name Name FluAD FluAD 2021-06-14 [facility]pleted [facility] 14:04:00 - [facility] FluAD FluAD 2021-06-14 Completed [facility] 14:04:00 - [facility] FluAD FluAD 2021-06-14 Completed [facility] 14:04:00 - [facility] FluAD FluAD 2021-06-14 Completed [facility] 14:04:00 - [facility] FluAD FluAD 2021-06-14 Completed [facility] 14:04:00 - [facility] FluAD FluAD 2021-06-14 Completed [facility] 14:04:00 - [facility] FluAD FluAD 2021-06-14 Completed [facility] 14:04:00 - [facility] FluAD FluAD 2021-06-14 Completed [facility] 14:04:00 - [facility] FluAD FluAD 2021-06-14 Completed [facility] 14:04:00 - [facility] FluAD FluAD 2021-06-14 Completed [facility] 14:04:00 - [facility] FluAD FluAD 2021-06-14 Completed [facility] 14:04:00 - [facility] FluAD FluAD 2021-06-14 Completed [facility] 14:04:00 - [facility] FluAD FluAD 2019-05-09 Completed [facility] 12:57:00 - [facility] FluAD FluAD 2019-05-09 Completed [facility] 12:57:00 - [facility] FluAD FluAD 2019-05-09 Completed [facility] 12:57:00 - [facility] FluAD FluAD 2019-05-09 Completed [facility] 12:57:00 - [facility] FluAD FluAD 2019-05-09 Completed [facility] 12:57:00 - [facility] FluAD FluAD 2019-05-09 Completed [facility] 12:57:00 - [facility] FluAD FluAD 2019-05-09 Completed [facility] 12:57:00 - [facility] FluAD FluAD 2019-05-09 Completed [facility] 12:57:00 - [facility] FluAD FluAD 2019-05-09 Completed [facility] 12:57:00 - [facility] FluAD FluAD 2019-05-09 Completed [facility] 12:57:00 - [facility] FluAD FluAD 2019-05-09 Completed [facility] 12:57:00 - [facility] FluAD FluAD 2019-05-09 Completed [facility] 12:57:00 - [facility] FluAD FluAD 2019-05-09 Completed [facility] 00:00:00 - [facility] FluAD FluAD 2018-05-03 Completed [facility] 12:24:00 - [facility] FluAD FluAD 2018-05-03 Completed [facility] 12:24:00 - [facility] FluAD FluAD 2018-05-03 Completed [facility] 12:24:00 - [facility] FluAD FluAD 2018-05-03 Completed [facility] 12:24:00 - [facility] FluAD FluAD 2018-05-03 Completed [facility] 12:24:00 - [facility] FluAD FluAD 2018-05-03 Completed [facility] 12:24:00 - [facility] FluAD FluAD 2018-05-03 Completed [facility] 12:24:00 - [facility] FluAD FluAD 2018-05-03 Completed [facility] 12:24:00 - [facility] FluAD FluAD 2018-05-03 Completed [facility] 12:24:00 - [facility] FluAD FluAD 2018-05-03 Completed [facility] 12:24:00 - [facility] FluAD FluAD 2018-05-03 Completed [facility] 12:24:00 - [facility] FluAD FluAD 2018-05-03 Completed [facility] 12:24:00 - [facility] FluAD FluAD 2018-05-03 Completed [facility] 00:00:00 [facility] Vital Signs Vital Name Observation Time Observation Value Comments Source height 2022-07-03 16:20:00 64.00 [in_i] [facility] weight 2022-07-03 16:20:00 191.4 [lb_av] [facility] temperature 2022-07-03 16:20:00 97.2 [degF] [facility] bmi 2022-07-03 16:20:00 32.85 kg/m2 [facility] oximetry 2022-07-03 16:20:00 95 % [facility] respiratory rate 2022-07-03 16:20:00 18 /min Comm on [facility] blood pressure 2022-07-03 16:20:00 130 mm[Hg] [facility] - systolic [facility] blood pressure 2022-07-03 16:20:00 84 mm[Hg] [facility] - diastolic [facility] height 2022-01-17 15:40:00 64.00 [in_i] [facility] - [facility] weight 2022-01-17 15:40:00 188 [lb_av] [facility] temperature 2022-01-17 15:40:00 96.9 [degF] [facility] - [facility] bmi 2022-01-17 15:40:00 32.27 kg/m2 [facility] oximetry 2022-01-17 15:40:00 95 % [facility] respiratory rate 2022-01-17 15:40:00 22 /min Comm on [facility] blood pressure 2022-01-17 15:40:00 136 mm[Hg] [facility] - systolic [facility] blood pressure 2022-01-17 15:40:00 72 mm[Hg] [facility] - diastolic [facility] height 2022-01-17 15:00:00 64.00 [in_i] [facility] weight 2022-01-17 15:00:00 188 [lb_av] [facility] temperature 2022-01-17 15:00:00 96.9 [degF] [facility] bmi 2022-01-17 15:00:00 32.27 kg/m2 [facility] oximetry 2022-01-17 15:00:00 95 % [facility] 2022-01-17 15:00:00 22 /min Comm on [facility] blood pressure 2022-01-17 15:00:00 161 mm[Hg] [facility] - systolic [facility] blood pressure 2022-01-17 15:00:00 76 mm[Hg] [facility] - diastolic [facility] height 2021-09-12 11:40:00 64.00 [in_i] Common [facility] weight 2021-09-12 11:40:00 188 [lb_av] Common [facility] temperature 2021-09-12 11:40:00 97.2 [degF] Common [facility] bmi 2021-09-12 11:40:00 32.27 kg/m2 Common [facility] oximetry 2021-09-12 11:40:00 95 % Common [facility] respiratory rate 2021-09-12 11:40:00 20 /min Comm on [facility] blood pressure 2021-09-12 11:40:00 134 mm[Hg] Common [facility] systolic [facility] blood pressure 2021-09-12 11:40:00 70 mm[Hg] Common [facility] diastolic [facility] height 2021-06-14 13:20:00 64.00 [in_i] Common [facility] weight 2021-06-14 13:20:00 191.6 [lb_av] [facility] temperature 2021-06-14 13:20:00 97.3 [degF] [facility] bmi 2021-06-14 13:20:00 32.88 kg/m2 [facility] oximetry 2021-06-14 13:20:00 95 % [facility] respiratory rate 2021-06-14 13:20:00 16 /min Comm on [facility] blood pressure 2021-06-14 13:20:00 136 mm[Hg] Common [facility] systolic [facility] blood pressure 2021-06-14 13:20:00 60 mm[Hg] Common [facility] diastolic [facility] Procedures This patient has no known procedures. Encounters Start End Encounter Admission Attending Care Care Encounter Source Date/Time Date/Time Type Type Clinicians Facility Department ID 2023-02-[address] [facility] [id number] [facility] 14:24[facility] [id number] [facility] 2023-01-05 Outpatient Mcmanus, STLMLC STLMLC [id number] [facility] 16:33:00 [facility] 267[address] [facility] 2022-06-29 Outpatient Payton, Na STLMLC STLMLC [id number] [facility] 13:31:00 [facility] 2022-04-28 Outpatient Payton, Na STLMLC STLMLC [id number] Common 08:59:00 [facility] 2022-01-12 Outpatient Payton, Na STLMLC STLMLC [id number] Common 11:43:00 [facility] 2021-09-14 Outpatient Payton, Na STLMLC STLMLC [id number] [facility] 14:39:19 [facility] 2021-09-14 Outpatient Payton, Na STLMLC STLMLC [id number] [facility] 13:29:48 [id number] [facility] 2021-09-14 Outpatient Payton, Na STLMLC STLMLC [id number] [facility] 13:27:28 [facility] 2021-09-14 Outpatient Payton, Na STLMLC STLMLC [id number] [facility] 12:44:22 [id number] [facility] 2021-09-14 Outpatient Payton, Na STLMLC STLMLC [id number] Common 12:42:01 [id number] [facility] 2021-09-14 Outpatient Payton, Na STLMLC STLMLC [id number] Common 11:33:28 [id number] [facility] 2021-09-14 Outpatient Payton, Na STLMLC STLMLC [id number] 2 [facility] 11:22:15 [id number] [facility] 2021-09-14 Outpatient Payton, Na STLMLC STLMLC [id number] 2 Common 11:06:05 [id number] [facility] 2022-07-20 2022-07-20 (TEL) STLMLC STLMLC [id number] Co mmon 00:00:00 00:00:00 [facility] 2022-07-03 2022-07-03 OFFICE STLMLC STLMLC [id number] Co mmon 00:00:00 00:00:00 VISIT [facility] ESTAB PT - [facility] LEVEL 4 [facility] 2022-03-27 2022-03-27 (TEL) STLMLC STLMLC [id number] Co mmon 00:00:00 00:00:00 [facility] 2022-03-24 2022-03-24 (TEL) STLMLC STLMLC [id number] Co mmon 00:00:00 00:00:00 [facility] 2022-03-22 2022-03-22 (TEL) STLMLC STLMLC [id number] Co mmon 00:00:00 00:00:00 [facility] 2022-02-13 2022-02-13 (TEL) STLMLC STLMLC [id number] Co mmon 00:00:00 00:00:00 [facility] 2022-01-17 2022-01-17 OFFICE STLMLC STLMLC [id number] Co mmon 00:00:00 00:00:00 VISIT EST Spir it PT LEVEL 3 - [facility] 2022-01-17 2022-01-17 SUB ANNUAL STLMLC STLMLC [id number] Common 00:00:00 00:00:00 MCR [facility] WELLNESS - [facility]I VISIT [facility] 2021-09-12 2021-09-12 OFFICE STLMLC STLMLC [id number] Co mmon 00:00:00 00:00:00 VISIT [facility] ESTAB PT - [facility] LEVEL 4 [facility] 2021-07-16 2021-07-16 (TEL) STLMLC STLMLC [id number] Co mmon 00:00:00 00:00:00 [facility] 2021-07-12 2021-07-12 (TEL) STLMLC STLMLC [id number] Co mmon 00:00:00 00:00:00 [facility] 2021-06-14 2021-06-14 OFFICE STLMLC STLMLC [id number] Co mmon 00:00:00 00:00:00 VISIT [facility] LEVEL 4 [facility] 2021-03-14 2021-03-14 Outpatient STLMLC STLMLC [id number] Common 00:00:00 00:00:00 [facility] 2020-11-12 2020-11-12 Outpatient STLMLC STLMLC [id number] [facility] 00:00:00 00:00:00 [facility] 2020-08-25 2020-08-25 Outpatient STLMLC STLMLC [id number] [facility] 00:00:00 00:00:00 [facility] 2020-08-11 2020-08-11 Outpatient STLMLC STLMLC [id number] [facility] 00:00:00 00:00:00 [facility] 2020-03-18 2020-03-18 [facility] [id number] Common 10:20:00 10:20:00 [place] [address] [facility] 2020-03-18 2020-03-18 [facility] [id number] Common 10:00:00 10:00:00 [place] [address] [facility] 2020-02-26 2020-02-26 [facility] [id number] Common 13:31:00 13:31:00 [place] [address] [facility] 2020-01-06 2020-01-06 [facility] [id number] Common 14:00:00 14:00:00 [place] [address] [facility] 2019-12-27 2019-12-27 [facility] [id number] Common 21:51:00 21:51:00 [place] [address] [facility] 2019-12-21 2019-12-21 [facility] [id number] Common 19:24:00 19:24:00 [place] [address] [facility] 2019-09-26 2019-09-26 [facility] [id number] Common 08:40:00 08:40:00 [address] [place] [address] [facility] 2019-08-08 2019-08-08 [facility] [id number] Common 10:20:00 10:20:00 t [place] [place] [address] [facility] 2019-06-22 2019-06-22 [id number] Common 17:49:00 17:49:00 [place] [address] [facility] 2019-06-20 2019-06-20 [facility] [id number] Common 14:20:00 14:20:00 [place] [address] [facility] 2019-05-09 2019-05-09 [facility] [id number] Common 11:00:00 11:00:00 [place] [address] [facility] 2019-03-05 2019-03-05 [facility] [id number] Common 10:20:00 10:20:00 [place] [address] [facility] 2019-02-04 2019-02-04 [facility] [id number] Common 10:20:00 10:20:00 [place] [address] [facility] 2019-01-30 2019-01-30 [facility] [id number] Common 09:33:00 09:33:00 [place] [address] [facility] 2018-10-17 2018-10-17 [facility] [id number] Common 11:00:00 11:00:00 [place] [address] [address] [facility] 2018-09-21 2018-09-21 [facility] [id number] Common 17:58:00 17:58:00 [place] [address] [facility] 2018-09-17 2018-09-17 [facility] [id number] Common 14:30:00 14:30:00 [place] [address] [address] [facility] 2018-07-31 2018-07-31 [facility] [id number] Common 10:54:00 10:54:00 [place] [address] [facility] 2018-05-03 2018-05-03 [facility] [id number] Common 10:30:00 10:30:00 [place] [address] [facility] 2018-04-11 2018-04-11 [facility] [id number] Common 01:34:00 01:34:00 [place] [address] [facility] 2018-03-25 2018-03-25 [facility] [id number] Common 18:00:00 18:00:00 t [place] [address] [facility] 2018-03-22 2018-03-22 [facility] [id number] Common 10:00:00 10:00:00 [place] [address] [facility] Results This patient has no known results.
[2023-05-06 07:59] LABS: Absolute Lymphocytes (CBC) 2.2 K/uL (0.7-4.9); Hematocrit 38.4 % (36.0-45.0); Lymphocytes % 38.6 % (15.3-44.8); MCV 90.2 fL (80-100); MPV 8.7 fL (7.6-11.3); Platelets 170 thou/uL (152-406); RBC Red Blood Cell Count 4.26 M/uL (3.86-4.86)
--- NOTE | 2023-05-06 08:12 | RAD REPORT ---
EXAM DESCRIPTION: [place] Single View05/06/2023 8:06 am CLINICAL HISTORY: CHEST PAIN COMPARISON: Chest Single View dated 03/04/2019; CHEST SINGLE VIEW dated 03/30/2014; CHEST SINGLE VIEW dated 10/02/2013; CHEST SINGLE VIEW dated 01/06/2013 TECHNIQUE: Portable AP view of the chest. FINDINGS: The lungs are clear. No pneumothorax or effusion. The cardiomediastinal contours are unrem arkable. IMPRESSION: No acute cardiopulmonary process.
[2023-05-06 08:17] LABS: Potassium 3.4 mEq/L (3.5-5.1); Troponin High Sensitivity 4.5 pg/mL (<58.9)
--- NOTE | 2023-05-06 10:14 | ER ---
Nurse's Notes [facility] Name: Afsaneh Wilkes Age: 77 yrs Sex: Female : 1945 Arrival Date: 05/06/2023 Time: 07:07 Bed 7 Private MD: Diagnosis: Chest pain, unspecified;Essential (primary) hypertension Presentation: 05/06 07:07 Chief complaint: Patient states: Chest pain that began last night and woke up with a ss red face that feels hot. Coronavirus screen: Client denies travel out of the [place] in the last 14 days. Ebola Screen: Patient denies exposure to infectious person. Patient denies travel to an Ebola-affected area in the 21 days before illness onset. Initial Sepsis Screen: Does the patient meet any 2 criteria? No. Patient's initial sepsis screen is negative. Does the patient have a suspected source of infection? No. Patient's initial sepsis screen is negative. Risk Assessment: Do you want to hurt yourself or someone else? Patient reports no desire to harm self or others. Onset of symptoms was May 05, 2023. 07:07 Method Of Arrival: Ambulatory ss 07:07 Acuity: BENITO 3 ss Triage Assessment: 09:00 General: Appears in no apparent distress. Behavior is calm, cooperative. Pain: ko1 Complains of pain in chest. Historical: - Allergies: 07:28 No Known Allergies; ss - Home Meds: 09:36 hydrochlorothiazide 25 mg Oral tab [Active]; lisinopril 10 mg Oral tab [Active]; hb simvastatin 20 mg Oral tab [Active]; - PMHx: 07:28 Hyperlipidemia; Hypertension; ss - Immunization history:: Adult Immunizations up to date. - Social history:: Smoking status: Patient denies any tobacco usage or history of. - History obtained from: son. Screenin:35 [facility] ED Fall Risk Assessment (Adult) History of falling in the last 3 months, ko1 including since admission No falls in past 3 months (0 pts) Confusion or Disorientation No (0 pts) Intoxicated or Sedated No (0 pts) Impaired Gait No (0 pts) Mobility Assist Device Used No (0 pt) Altered Elimination No (0 pt) Score/Fall Risk Level 0 - 2 = Low Risk Oriented to surroundings, Maintained a safe environment, Educated pt \T\ family on fall prevention, incl call for assistance when getting out of bed, Assessed \T\ reinforced patient's understanding of fall precautions, Provided non-skid footwear, Hourly rounding (assess needs \T\ fall precautionary measures) done, Used ambulatory aids as needed (educated on \T\ assisted with), Used gait belt as appropriate. Abuse screen: Denies threats or abuse. Denies injuries from another. Nutritional screening: No deficits noted. Tuberculosis screening: No symptoms or risk factors identified. Assessment: 07:38 Pain: Pain does not radiate. Pain began suddenly. Cardiovascular: Reports chest pain, ko1 shortness of breath, Rhythm is sinus rhythm. Vital Signs: 07:07 BP 181 / 108; Pulse 96; Resp 16; Pulse Ox 96% ; Weight 83.91 kg; Height 5 ft. 4 in. ; ss Pain 1/; 07:35 BP 164 / 78; Pulse 85; Resp 18; Pulse Ox 96% ; ko1 08:00 BP 181 / 79; Pulse 75; Resp 18; Pulse Ox 98% ; ko1 08:16 BP 164 / 78; Pulse 86; Resp 20; Temp 97.8; Pulse Ox 98% ; Pain 2/10; sm8 09:03 BP 167 / 76; Pulse 74; Resp 18; Pulse Ox 98% ; ko1 09:21 BP 162 / 73; Pulse 78; Resp 16; Pulse Ox 99% ; ko1 07:07 Body Mass Index 31.75 (83.91 kg, 162.56 cm) ss 07:07 Pain Scale: Adult ss 08:16 Pain Scale: Adult 8 ED Course: 07:12 Patient arrived in ED. ts1 07:16 Mili Crawford, KUN is Primary Nurse. ko1 07:25 Stephanie Oswald is Attending Physician. ci 07:28 Triage completed. ss 07:28 Arm band placed on right wrist. ss 07:35 Patient has correct armband on for positive identification. Placed in gown. Bed in low ko1 position. Call light in reach. Side rails up X 1. Provided Education on: labs ekg. Client placed on continuous cardiac and pulse oximetry monitoring. NIBP monitoring applied. hall monitor on. Door closed. Noise minimized. Lights dimmed. Warm blanket given. 07:35 Patient maintains SpO2 saturation greater than 95% on room air. ko1 07:46 Missed attempt(s): 22 gauge in right antecubital area. Bleeding controlled, band aid sm8 applied, catheter tip intact. 07:46 Missed attempt(s): 22 gauge in left forearm. Bleeding controlled, band aid applied, sm8 catheter tip intact. 07:50 Inserted saline lock: 22 gauge in left antecubital area, using aseptic technique. Blood ko1 collected. 07:51 Basic Metabolic Panel Sent. ko1 07:51 CBC with Diff Sent. ko1 07:51 Troponin HS Sent. ko1 08:00 No provider procedures requiring assistance completed. ko1 08:08 XRAY Chest (1 view) In Process Unspecified. EDMS 09:02 Troponin High Sensitivity Sent. ko1 10:25 IV discontinued, intact, bleeding controlled, No redness/swelling at site. Pressure ko1 dressing applied. Administered Medications: 10:06 Drug: Aspirin PO 325 mg Route: PO; ko1 Medication: 08:00 VIS not applicable for this client. ko1 Outcome: 10:14 Discharge ordered by . ci 10:25 Discharged to home ambulatory, with family. ko1 10:25 Condition: good 10:25 Discharge instructions given to patient, family, Instructed on discharge instructions, follow up and referral plans. Demonstrated understanding of instructions, follow-up care. 10:26 Patient left the ED. ko1 Signatures: Dispatcher [employer] EDMS Yi Hannah, KUN TRISTAN Teressa Jason RN RN hb Oliver, Kathy, RN RN ko1 Smitha Sethi PAS PAS ts1 Mills, Scarlett Franchesca IhStephanie armendariz ci
--- NOTE | 2023-05-06 10:14 | EDPHYS ---
Physician Documentation [facility] Name: Afsaneh Wilkes Age: 77 yrs Sex: Female : 1945 Arrival Date: 05/06/2023 Time: 07:07 Bed 7 Private MD: ED Physician Stephanie Oswald HPI: 05/06 09:35 This 77 yrs old Female presents to ER via Ambulatory with complaints of Chest Pain, ci Blood Pressure Problem. 09:35 Patient presents with HTN and chest pain that started last night. Patient had ci midsternal chest pain that was aching in nature with associated SOB. Patient's face was red and felt flushed. She checked her BP and SBP was >180. CP is resolved in the ED. Compliant with BP meds. She denies diaphoresis, nausea/vomiting.. Historical: - Allergies: 07:28 No Known Allergies; ss - Home Meds: 09:36 hydrochlorothiazide 25 mg Oral tab [Active]; lisinopril 10 mg Oral tab [Active]; hb simvastatin 20 mg Oral tab [Active]; - PMHx: 07:28 Hyperlipidemia; Hypertension; ss - Immunization history:: Adult Immunizations up to date. - Social history:: Smoking status: Patient denies any tobacco usage or history of. - History obtained from: son. ROS: 09:37 Constitutional: Negative for fever, chills, and weight loss, Eyes: Negative for injury, ci pain, redness, and discharge, ENT: Negative for injury, pain, and discharge, Neck: Negative for injury, pain, and swelling, Cardiovascular: Negative for palpitations, and edema. Positive chest pain Respiratory: Negative for cough, wheezing, and pleuritic chest pain. Positive shortness of breath Abdomen/GI: Negative for abdominal pain, nausea, vomiting, diarrhea, and constipation, Back: Negative for injury and pain, MS/Extremity: Negative for injury and deformity, Skin: Negative for injury, rash, and discoloration, Neuro: Negative for headache, weakness, numbness, tingling, and seizure, Psych: Negative for depression, anxiety, suicide ideation, homicidal ideation, and hallucinations. Exam: 09:37 Constitutional: This is a well developed, well nourished patient who is awake, alert, ci and in no acute distress. Head/Face: Normocephalic, atraumatic. Eyes: Pupils equal round and reactive to light, extra-ocular motions intact. Lids and lashes normal. Conjunctiva and sclera are non-icteric and not injected. Cornea within normal limits. Periorbital areas with no swelling, redness, or edema. ENT: Nares patent. No nasal discharge, no septal abnormalities noted. Tympanic membranes are normal and external auditory canals are clear. Oropharynx with no redness, swelling, or masses, exudates, or evidence of obstruction, uvula midline. Mucous membranes moist. Neck: Trachea midline, no thyromegaly or masses palpated, and no cervical lymphadenopathy. Supple, full range of motion without nuchal rigidity, or vertebral point tenderness. No Meningismus. Chest/axilla: Normal chest wall appearance and motion. Nontender with no deformity. No lesions are appreciated. Cardiovascular: Regular rate and rhythm with a normal S1 and S2. No gallops, murmurs, or rubs. No JVD. No pulse deficits. Respiratory: Lungs have equal breath sounds bilaterally, clear to auscultation and percussion. No rales, rhonchi or wheezes noted. No increased work of breathing, no retractions or nasal flaring. Abdomen/GI: Soft, non-tender, with normal bowel sounds. No distension or tympany. No guarding or rebound. No evidence of tenderness throughout. Back: No spinal tenderness. No costovertebral tenderness. Full range of motion. Skin: Warm, dry with normal turgor. Normal color with no rashes, no lesions, and no evidence of cellulitis. MS/ Extremity: Pulses equal, no cyanosis. Neurovascular intact. Full, normal range of motion. Neuro: Awake and alert, GCS 15, oriented to person, place, time, and situation. Cranial nerves II-XII grossly intact. Motor strength 5/5 in all extremities. Sensory grossly intact. Cerebellar exam normal. Normal gait. Psych: Awake, alert, with orientation to person, place and time. Behavior, mood, and affect are within normal limits. Vital Signs: 07:07 BP 181 / 108; Pulse 96; Resp 16; Pulse Ox 96% ; Weight 83.91 kg; Height 5 ft. 4 in. ; ss Pain 08/29; 07:35 BP 164 / 78; Pulse 85; Resp 18; Pulse Ox 96% ; ko1 08:00 BP 181 / 79; Pulse 75; Resp 18; Pulse Ox 98% ; ko1 08:16 BP 164 / 78; Pulse 86; Resp 20; Temp 97.8; Pulse Ox 98% ; Pain 2/10; sm8 09:03 BP 167 / 76; Pulse 74; Resp 18; Pulse Ox 98% ; ko1 09:21 BP 162 / 73; Pulse 78; Resp 16; Pulse Ox 99% ; ko1 07:07 Body Mass Index 31.75 (83.91 kg, 162.56 cm) ss 07:07 Pain Scale: Adult ss 08:16 Pain Scale: Adult sm8 MDM: 07:25 Patient medically screened. ci 09:37 Differential diagnosis: abnormal EKG, acute myocardial infarction, coronary artery ci disease chest wall pain, costochondritis, pericarditis, pneumonia, pulmonary embolus, stable angina, unstable angina, Hypertensive emergency. HEART Score: History: Slightly Suspicious (0), ECG: Non specific repolarization disturbance / LBTB / PM (1), Age: > or = 65 years (2), Risk Factors: 1 or 2 risk factors (1), Troponin: < or = 1 x Normal Limit (0), Total Score = 4. I considered the following discharge prescriptions or medication management in the emergency department Consider nitroglycerin but pain resolved in the ED.. Independent interpretation of the following test(s) in the Emergency Department. Historians other than the Patient: Daughter/Son: Son. Care significantly affected by the following chronic conditions: Hypertension, Hyperlipidemia. Care significantly affected by the following Social Determinants of Health: Communication barrier, patient is deaf, sign language/interpretation provided by son at bedside.. 09:50 Awaiting: labs results. ED course: Patient presents for evaluation of hypertension and ci chest pain. Chest pain resolved upon arrival to the ED. EKG was obtained which showed normal sinus rhythm with no acute ischemic changes. Her high-sensitivity troponin is negative x2, ACS unlikely. Chest pain resolved in the ED. Patient was noted to be hypertensive with SBP 180 on arrival, suspicion for possible hypertensive emergency. Chest x-ray as interpreted by me shows no pulmonary edema. BP spontaneously improved in the ER, hypertensive emergency unlikely. Low suspicion for PE as she is not tachycardic or hypoxic. She denies migratory knifelike pain, she has no widened mediastinum on chest x-ray, no pulsatile neurodeficits, aortic dissection unlikely. Patient has a heart score of 4, will need further outpatient testing. She will also need blood pressure meds adjusted by PCP. Will refer to cardiology. Plan for discharge discussed with patient and family, they are agreeable with plan.. 09:57 ED course: Patient reassessed, chest pain completely resolved. She is stable for ci discharge.. 09:58 Data reviewed: vital signs, nurses notes, old medical records, Prior ED visit in February for chest pain. Found to have bronchitis. 10:11 The patient was given aspirin in the Emergency Department. Special discussion: Based on ci the patient's history, exam, and Dx evaluation, there is no indication for emergent intervention or inpatient Tx. It is understood by the patient/guardian that if the Sx's persist or worsen they need to return immediately for re-evaluation. I discussed with the patient/guardian in detail that at this point there is no indication for admission to the hospital. It is understood, however, that if the symptoms persist or worsen the patient needs to return immediately for re-evaluation. Based on the history and exam findings, there is no indication for further emergent testing or inpatient evaluation. I discussed with the patient/guardian the need to see the food safety officer for further evaluation of the symptoms. 05/06 07:33 Order name: Basic Metabolic Panel; Complete Time: 08:23 ci 05/06 08:23 Interpretation: Abnormal: K 3.4. ci 05/06 07:33 Order name: CBC with Diff ci 05/06 08:24 Interpretation: Within normal limits: No anemia, leukocytosis. ci 05/06 07:33 Order name: Troponin HS; Complete Time: 08:23 ci 05/06 08:24 Interpretation: Within normal limits. ci 05/06 08:26 Order name: Troponin High Sensitivity; Complete Time: 10:11 ci 05/06 10:11 Interpretation: Within normal limits: Troponin HS 5.3. ci 05/06 07:33 Order name: XRAY Chest (1 view); Complete Time: 08:23 ci 05/06 08:24 Interpretation: No acute disease. ci 05/06 07:33 Order name: EKG; Complete Time: 07:34 ci 05/06 08:26 Interpretation: NSR, HR 81, RBBB, QTC 476, no acute ischemic changes. ci 05/06 07:33 Order name: Cardiac monitoring; Complete Time: 07:34 ci 05/06 07:33 Order name: EKG - Nurse/Tech; Complete Time: 07:34 ci 05/06 07:33 Order name: IV Saline Lock; Complete Time: 07:51 ci 05/06 07:33 Order name: Labs collected and sent; Complete Time: 07:51 ci 05/06 07:33 Order name: O2 Per Protocol; Complete Time: 07:34 ci 05/06 07:33 Order name: O2 Sat Monitoring; Complete Time: 07:34 ci Administered Medications: 10:06 Drug: Aspirin PO 325 mg Route: PO; ko1 Disposition Summary: 05/06/23 10:14 Discharge Ordered Location: Home ci Condition: Stable ci Diagnosis - Chest pain, unspecified ci - Essential (primary) hypertension ci Followup: ci - With: Private Physician - When: 1 - 2 days - Reason: Recheck today's complaints, Re-evaluation by your physician Discharge Instructions: - Discharge Summary Sheet ci - Hypertension, Adult ci - Nonspecific Chest Pain, Adult, [id number] ci Forms: - Medication Reconciliation Form ci - Thank You Letter ci - Antibiotic Education ci - Prescription Opioid Use ci - Patient Portal Instructions ci - Leadership Thank You Letter ci Signatures: Dispatcher [employer] EDYi Suazo RN RN Teressa Beckett, RN RN Mili Hernandez RN RN ko1 Stephanie Oswald ci Corrections: (The following items were deleted from the chart) 09:42 09:35 Patient is a . ci ci 09:57 08:26 NSR, HR 81, RBBB, QTC 476, no acute ischemic changes. ci ci
[2023-05-06] MEDS ORDERED: ASPIRIN EC 325 MG TABLET PO ONE (10:17)
[2023-05-06 10:36] VITALS: TEMP 97.8
[2023-05-06 10:39] VITALS: BP 162/73; O2SAT 99
[2023-05-06 10:56] LABS: Blood Morphology Comment NOT SEEN (NOT SEEN); Platelet Estimate ADEQ
--- NOTE | 2023-05-07 19:06 | EKG ---
Test Date: 2023-05-06 Test Time: 07:24:37 Crab Backer: CARLOS MEASUREMENT RESULTS: Intervals: Rate: 81 AR: 178 QRSD: 122 QT: 410 QTc: 476 Warren: P: 68 AR: 178 QRS: -3 T: 87 INTERPRETIVE STATEMENTS: Normal sinus rhythm Right bundle branch block Abnormal ECG Compared to ECG 03/04/2019 10:22:43 No significant changes Electronically Signed On 05-07-23 19:04:23 CDT by Juan M Wayne
== END 2023-05-06 10:26 | disposition home or self-care (01) ==
LOC: ER 07:07
DX: R07.89 Other chest pain (principal); I10 Essential (primary) hypertension; E78.5 Hyperlipidemia, unspecified
CPT/HCPCS: 36415; 71045; 80048; 84484; 85025; 93005; 99285

== ENCOUNTER 2024-10-23 17:45 | Emergency (ER) | payer OTHER ==
--- OUTSIDE RECORDS SUMMARY | 2024-10-23 17:50 | XMS REPORT | Continuity of Care Document ---
Author Name Unknown Address [address] [facility] [address] [place] [address] [facility] Address [address] [facility] [address] [place] [address] Care Team Providers Care Reference Archivist Name Role Phone Khoi Mcmanus Attending Clinician Unavailable Deana Payton Attending Clinician Unavailable Payers Payer Name Policy Type Policy Number Effective Date Expirati on Date Source MEDICARE NOVITAS MB [id number] 2011 00:00:00 [facility] MEDICARE NOVITAS MB [id number] 2011 00:00:00 [facility] MEDICARE NOVITAS MB [id number] 2011 00:00:00 [facility] Problems Condition Name Condition Details Condition Category Status Onset Date Resolution Date Last Treatment Date Treating Clinician Comments Source [id number] Body mass index [BMI] 32.0-32.9, adult Problem [facility] [id number] Non-season al allergic rhinitis, unspecifie d trigger Problem [facility] [id number] Primary osteoarthr itis involving multiple joints Problem [facility] Hearing loss Unspecifie d hearing loss Problem [facility] Cervical 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 Osteoarthr itis of cervical spine, unspecifie d spinal osteoarthr itis complicati on status Problem [facility] Hypertensi on HTN (hypertens ion) Problem [facility] Adult health examinatio n Adult general medical exam Problem [facility] [id number] Bilateral deafness Problem [facility] Prediabete s Prediabete s Problem [facility] Hyperlipid emia Hyperlipid emia Problem [facility] Primary osteoarthr itis Primary osteoarthr itis involving multiple joints Problem [facility] Bilateral tinnitus Tinnitus of both ears Problem [facility] [id number] Hypothyroi dism (acquired) Problem [facility] [id number] Type 2 diabetes mellitus with hyperglyce jennifer, without long-term current use of insulin Problem [facility] [id number] Other obesity due to excess calories Problem [facility] Gastroesop hageal reflux disease without esophagiti s Gastroesop hageal reflux disease without esophagiti s Problem [facility] Social History Social Habit Start Date Stop Date Quantity Comments Source History of Tobacco Use [facility] Sex Assigned At [facility] Smoking Status Start Date Stop Date Source Never Smoker [facility] Former Smoker 2023-02-12 00:00:00 2023-02-12 00:00:00 [facility] Medications Ordered Medication Name Filled Medication Name Start Date Stop Date Current Medication? Ordering Clinician Indication Dosage Frequency Signature (SIG) Comments Components Source Omeprazole 20 MG Omeprazole 20 MG 2023-08 00:00: 00 No QD Omeprazole 20 MG Losartan Potassium 50 MG Losartan Potassium 50 MG No 1{table t} BID Losartan Potassium 50 MG Simvastatin 20 MG Simvastatin 20 MG No QD Simvastati n 20 MG Levothyroxi ne Sodium 75 MCG Levothyroxi ne Sodium 75 MCG No QD Levothyrox ine Sodium 75 MCG Vitamin D3 Vitamin D3 No Vitamin D3 Metoprolol Tartrate 25 MG Metoprolol Tartrate 25 MG No 1{table t_with_ food} BID Metoprolol Tartrate 25 MG Immunizations Ordered Immunization Name Filled Immunization Name Date Status Comments Source FluAD FluAD 2021-06-14 14:04:00 Completed [facility] FluAD FluAD 2021-06-14 14:04:00 Completed [facility] FluAD FluAD 2021-06-14 14:04:00 Completed [facility] FluAD FluAD 2021-06-14 14:04:00 Completed [facility] FluAD FluAD 2021-06-14 14:04:00 Completed [facility] FluAD FluAD 2019-05-09 12:57:00 Completed [facility] FluAD FluAD 2019-05-09 12:57:00 Completed [facility] FluAD FluAD 2019-05-09 12:57:00 Completed [facility] FluAD FluAD 2019-05-09 12:57:00 Completed [facility] FluAD FluAD 2019-05-09 12:57:00 Completed [facility] FluAD FluAD 2019-05-09 00:00:00 Completed [facility] FluAD FluAD 2018-05-03 12:24:00 Completed [facility] FluAD FluAD 2018-05-03 12:24:00 Completed [facility] FluAD FluAD 2018-05-03 12:24:00 Completed [facility] FluAD FluAD 2018-05-03 12:24:00 Completed [facility] FluAD FluAD 2018-05-03 12:24:00 Completed [facility] FluAD FluAD 2018-05-03 00:00:00 Completed [facility] FluAD Quad SD FluAD Quad SD Unknown Completed [facility] FluAD FluAD Unknown Completed [facility] FluAD Quad SD FluAD Quad SD Unknown Completed [facility] FluAD FluAD Unknown Completed [facility] FluAD Quad SD FluAD Quad SD Unknown Completed [facility] FluAD FluAD Unknown Completed [facility] Fluad (aIIV4) - SDS - 0.5mL Fluad (aIIV4) - SDS - 0.5mL Unknown Completed [facility] FluAD FluAD Unknown Completed [facility] Fluad (aIIV4) - SDS - 0.5mL Fluad (aIIV4) - SDS - 0.5mL Unknown Completed [facility] FluAD FluAD Unknown Completed [facility] Fluad (aIIV4) - SDS - 0.5mL Fluad (aIIV4) - SDS - 0.5mL Unknown Completed [facility] FluAD FluAD Unknown Completed [facility] Fluad (aIIV4) - SDS - 0.5mL Fluad (aIIV4) - SDS - 0.5mL Unknown Completed [facility] FluAD FluAD Unknown Completed [facility] Fluad (aIIV4) - SDS - 0.5mL Fluad (aIIV4) - SDS - 0.5mL Unknown Completed [facility] FluAD FluAD Unknown Completed [facility] Fluad (aIIV4) - SDS - 0.5mL Fluad (aIIV4) - SDS - 0.5mL Unknown Completed [facility] FluAD FluAD Unknown Completed [facility] Fluad (aIIV4) - SDS - 0.5mL Fluad (aIIV4) - SDS - 0.5mL Unknown Completed [facility] FluAD FluAD Unknown Completed [facility] Vital Signs Vital Name Observation Time Observation Value Comments S ource height 2024-08-27 13:45:00 64.00 [in_i] Com [facility] weight 2024-08-27 13:45:00 170 [lb_av] Comm on [facility] temperature 2024-08-27 13:45:00 97.2 [degF] Com [facility] bmi 2024-08-27 13:45:00 29.18 kg/m2 Comm on [facility] oximetry 2024-08-27 13:45:00 96 % Commo n [facility] respiratory rate 2024-08-27 13:45:00 17 /min Common [facility] blood pressure systolic 2024-08-27 13:45:00 132 mm[Hg] [facility] blood pressure diastolic 2024-08-27 13:45:00 71 mm[Hg] [facility] height 2024-07-18 09:30:00 64.00 [in_i] Com [facility] weight 2024-07-18 09:30:00 173 [lb_av] Comm on [facility] bmi 2024-07-18 09:30:00 29.69 kg/m2 Comm on [facility] blood pressure systolic 2024-07-18 09:30:00 130 mm[Hg] [facility] blood pressure diastolic 2024-07-18 09:30:00 71 mm[Hg] Common [facility] height 2024-06-11 08:45:00 64.00 [in_i] Com [facility] weight 2024-06-11 08:45:00 173.6 [lb_av] Co mmon [facility] temperature 2024-06-11 08:45:00 97.3 [degF] Com [facility] bmi 2024-06-11 08:45:00 29.8 kg/m2 Commo n [facility] oximetry 2024-06-11 08:45:00 97 % Commo n [facility] blood pressure systolic 2024-06-11 08:45:00 135 mm[Hg] [facility] blood pressure diastolic 2024-06-11 08:45:00 71 mm[Hg] Common [facility] height 2024-06-11 08:45:00 64.00 [in_i] Com [facility] weight 2024-06-11 08:45:00 173.6 [lb_av] Co [facility] temperature 2024-06-11 08:45:00 97.3 [degF] Com [facility] bmi 2024-06-11 08:45:00 29.8 kg/m2 Commo n [facility] oximetry 2024-06-11 08:45:00 97 % Commo n [facility] blood pressure systolic 2024-06-11 08:45:00 135 mm[Hg] Common [facility] blood pressure diastolic 2024-06-11 08:45:00 71 mm[Hg] [facility] height 2024-03-11 09:30:00 64.00 [in_i] Com [facility] weight 2024-03-11 09:30:00 184.0 [lb_av] Co [facility] temperature 2024-03-11 09:30:00 97.3 [degF] Com [facility] bmi 2024-03-11 09:30:00 31.58 kg/m2 Comm on [facility] oximetry 2024-03-11 09:30:00 95 % Commo n [facility] respiratory rate 2024-03-11 09:30:00 17 /min [facility] blood pressure systolic 2024-03-11 09:30:00 128 mm[Hg] [facility] blood pressure diastolic 2024-03-11 09:30:00 72 mm[Hg] [facility] height 2024-03-11 09:40:00 64.00 [in_i] Com [facility] weight 2024-03-11 09:40:00 184.0 [lb_av] Co [facility] temperature 2024-03-11 09:40:00 97.3 [degF] Com [facility] bmi 2024-03-11 09:40:00 31.58 kg/m2 Comm on [facility] oximetry 2024-03-11 09:40:00 95 % Commo n [facility] respiratory rate 2024-03-11 09:40:00 17 /min [facility] blood pressure systolic 2024-03-11 09:40:00 128 mm[Hg] [facility] blood pressure diastolic 2024-03-11 09:40:00 72 mm[Hg] [facility] height 2023-09-11 14:20:00 64.00 [in_i] Com [facility] weight 2023-09-11 14:20:00 182.0 [lb_av] Co [facility] temperature 2023-09-11 14:20:00 97.3 [degF] Com [facility] bmi 2023-09-11 14:20:00 31.24 kg/m2 Comm on [facility] oximetry 2023-09-11 14:20:00 93 % Commo n [facility] respiratory rate 2023-09-11 14:20:00 17 /min [facility] blood pressure systolic 2023-09-11 14:20:00 132 mm[Hg] [facility] blood pressure diastolic 2023-09-11 14:20:00 65 mm[Hg] [facility] height 2023-09-11 14:20:00 64.00 [in_i] Com [facility] weight 2023-09-11 14:20:00 182.0 [lb_av] [facility] temperature 2023-09-11 14:20:00 97.3 [degF] Com [facility] bmi 2023-09-11 14:20:00 31.24 kg/m2 Comm on [facility] oximetry 2023-09-11 14:20:00 93 % Commo n [facility] respiratory rate 2023-09-11 14:20:00 17 /min Common [facility] blood pressure systolic 2023-09-11 14:20:00 132 mm[Hg] [facility] blood pressure diastolic 2023-09-11 14:20:00 65 mm[Hg] [facility] height 2023-06-21 15:40:00 64.00 [in_i] Com [facility] weight 2023-06-21 15:40:00 184.6 [lb_av] Co on [facility] temperature 2023-06-21 15:40:00 97.3 [degF] Com [facility] bmi 2023-06-21 15:40:00 31.68 kg/m2 Comm on [facility] oximetry 2023-06-21 15:40:00 96 % Commo n [facility] respiratory rate 2023-06-21 15:40:00 16 /min [facility] blood pressure systolic 2023-06-21 15:40:00 126 mm[Hg] [facility] blood pressure diastolic 2023-06-21 15:40:00 84 mm[Hg] [facility] height 2023-05-14 14:40:00 64.00 [in_i] Com [facility] weight 2023-05-14 14:40:00 186.0 [lb_av] Co mmon [facility] temperature 2023-05-14 14:40:00 97.3 [degF] Com [facility] bmi 2023-05-14 14:40:00 31.92 kg/m2 Comm on [facility] oximetry 2023-05-14 14:40:00 95 % Commo n [facility] respiratory rate 2023-05-14 14:40:00 18 /min Common [facility] blood pressure systolic 2023-05-14 14:40:00 135 mm[Hg] [facility] blood pressure diastolic 2023-05-14 14:40:00 76 mm[Hg] [facility] height 2023-02-12 13:40:00 64.00 [in_i] Com [facility] weight 2023-02-12 13:40:00 188.2 [lb_av] Co [facility] temperature 2023-02-12 13:40:00 96.8 [degF] Com [facility] bmi 2023-02-12 13:40:00 32.3 kg/m2 Commo n [facility] oximetry 2023-02-12 13:40:00 95 % Commo n [facility] respiratory rate 2023-02-12 13:40:00 17 /min Common [facility] blood pressure systolic 2023-02-12 13:40:00 122 mm[Hg] [facility] blood pressure diastolic 2023-02-12 13:40:00 74 mm[Hg] [facility] height 2023-02-12 14:00:00 64.00 [in_i] Com [facility] weight 2023-02-12 14:00:00 188.2 [lb_av] Co mmon [facility] temperature 2023-02-12 14:00:00 96.8 [degF] Com [facility] bmi 2023-02-12 14:00:00 32.3 kg/m2 Commo n [facility] oximetry 2023-02-12 14:00:00 95 % Commo n [facility] respiratory rate 2023-02-12 14:00:00 17 /min [facility] blood pressure systolic 2023-02-12 14:00:00 122 mm[Hg] [facility] blood pressure diastolic 2023-02-12 14:00:00 74 mm[Hg] Common [facility] height 2022-07-03 16:20:00 64.00 [in_i] Com [facility] weight 2022-07-03 16:20:00 191.4 [lb_av] Co mmon [facility] temperature 2022-07-03 16:20:00 97.2 [degF] Com [facility] bmi 2022-07-03 16:20:00 32.85 kg/m2 Comm on [facility] oximetry 2022-07-03 16:20:00 95 % Commo n [facility] respiratory rate 2022-07-03 16:20:00 18 /min [facility] blood pressure systolic 2022-07-03 16:20:00 130 mm[Hg] Common [facility] blood pressure diastolic 2022-07-03 16:20:00 84 mm[Hg] Common [facility] height 2022-01-17 15:40:00 64.00 [in_i] Com [facility] weight 2022-01-17 15:40:00 188 [lb_av] Comm on [facility] temperature 2022-01-17 15:40:00 96.9 [degF] Com [facility] bmi 2022-01-17 15:40:00 32.27 kg/m2 Comm on [facility] oximetry 2022-01-17 15:40:00 95 % Commo n [facility] respiratory rate 2022-01-17 15:40:00 22 /min Common [facility] blood pressure systolic 2022-01-17 15:40:00 136 mm[Hg] [facility] blood pressure diastolic 2022-01-17 15:40:00 72 mm[Hg] Common [facility] height 2022-01-17 15:00:00 64.00 [in_i] Com [facility] weight 2022-01-17 15:00:00 188 [lb_av] Comm on [facility] temperature 2022-01-17 15:00:00 96.9 [degF] Com [facility] bmi 2022-01-17 15:00:00 32.27 kg/m2 Comm on [facility] oximetry 2022-01-17 15:00:00 95 % Commo n [facility] respiratory rate 2022-01-17 15:00:00 22 /min Common [facility] blood pressure systolic 2022-01-17 15:00:00 161 mm[Hg] [facility] blood pressure diastolic 2022-01-17 15:00:00 76 mm[Hg] Common [facility] height 2021-09-12 11:40:00 64.00 [in_i] Com [facility] weight 2021-09-12 11:40:00 188 [lb_av] Comm on [facility] temperature 2021-09-12 11:40:00 97.2 [degF] Com [facility] bmi 2021-09-12 11:40:00 32.27 kg/m2 Comm on [facility] oximetry 2021-09-12 11:40:00 95 % Commo n [facility] respiratory rate 2021-09-12 11:40:00 20 /min Common [facility] blood pressure systolic 2021-09-12 11:40:00 134 mm[Hg] [facility] blood pressure diastolic 2021-09-12 11:40:00 70 mm[Hg] Common [facility] height 2021-06-14 13:20:00 64.00 [in_i] Com [facility] weight 2021-06-14 13:20:00 191.6 [lb_av] Co mmon [facility] temperature 2021-06-14 13:20:00 97.3 [degF] Com mon [facility] bmi 2021-06-14 13:20:00 32.88 kg/m2 Comm on [facility] oximetry 2021-06-14 13:20:00 95 % Commo n [facility] respiratory rate 2021-06-14 13:20:00 16 /min [facility] blood pressure systolic 2021-06-14 13:20:00 136 mm[Hg] [facility] blood pressure diastolic 2021-06-14 13:20:00 60 mm[Hg] [facility] Encounters Start Date/Time End Date/Time Encounter Type Admission Type Attending [facility] Care Facility Care Department Encounter ID Source 2024-07-18 09:22:00 Outpatient Mcmanus, Khoi STLMLC STL[facility]C [id number] [facility] 2024-06-09 11:33:00 Outpatient Mcmanus, Khoi STLMLC STL[facility]C [id number] [facility] 2024-03-05 09:59:00 Outpatient Mcmanus, Khoi STLMLC STLMLC [id number] [facility] 2024-03-03 10:07:00 Outpatient Mcmanus, Khoi STLMLC STLMLC [id number] [facility] 2023-06-20 15:48:00 Outpatient Mcmanus, Khoi STLMLC STL[facility]C [id number] [facility] 2023-02-08 14:24:00 Outpatient Mcmanus, Khoi STLMLC STLMLC [id number] [facility] 2023-01-05 16:33:00 Outpatient Mcmanus, Khoi STLMLC STLMLC [id number] [facility] 2022-06-29 13:31:00 Outpatient Payton STLMLC STLMLC [id number] [facility] 2022-04-28 08:59:00 Outpatient Payton, Na STLMLC STLMLC [id number] [facility] 2022-01-12 11:43:00 Outpatient Payton, Na STLMLC STLMLC [id number] [facility] 2021-09-14 14:39:19 Outpatient Payton, Na STLMLC STLMLC [id number] [facility] 2021-09-14 13:29:48 Outpatient Payton, Na STLMLC STLMLC [id number] [facility] 2021-09-14 13:27:28 Outpatient Tata, Na STLMLC STLMLC [id number] [facility] 2021-09-14 12:44:22 Outpatient Tata, Na STLMLC STLMLC [id number] [facility] 2021-09-14 12:42:01 Outpatient Tata, Deana STLMLC STLMLC [id number] [facility] 2021-09-14 11:33:28 Outpatient Tata Na STLMLC STLMLC [id number] [facility] 2021-09-14 11:22:15 Outpatient Tata Na STLMLC STLMLC [id number] [facility] 2021-09-14 11:06:05 Outpatient Tata, Na STLMLC STLMLC [id number] [facility] 2024-08-27 00:00:00 2024-08-27 00:00:00 OFFICE VISIT ESTAB PT LEVEL 4 STLMLC STLMLC [id number] [facility] 2024-07-18 00:00:00 2024-07-18 00:00:00 OFFICE VISIT ESTAB PT LEVEL 3 STLMLC STLMLC [id number] [facility] 2024-07-18 00:00:00 2024-07-18 00:00:00 (TEL) STLMLC STLMLC [id number] [facility] 2024-06-11 00:00:00 2024-06-11 00:00:00 OFFICE VISIT ESTAB PT LEVEL 4 STLMLC STLMLC [id number] [facility] 2024-03-11 00:00:00 2024-03-11 00:00:00 OFFICE VISIT ESTAB PT LEVEL 4 STLMLC STLMLC [id number] [facility] 2024-03-11 00:00:00 2024-03-11 00:00:00 SUB ANNUAL [facility] WELLNESS VISIT STLMLC STLMLC [id number] [facility] 2024-03-05 00:00:00 2024-03-05 00:00:00 (TEL) STLMLC STLMLC [id number] [facility] 2024-02-29 00:00:00 2024-02-29 00:00:00 (TEL) STLMLC STLMLC [id number] [facility] 2023-09-11 00:00:00 2023-09-11 00:00:00 OFFICE VISIT ESTAB PT LEVEL 4 STLMLC STLMLC [id number] [facility] 2023-06-25 00:00:00 2023-06-25 00:00:00 (TEL) STLMLC STLMLC [id number] [facility] 2023-06-21 00:00:00 2023-06-21 00:00:00 OFFICE VISIT ESTAB PT LEVEL 3 STLMLC STLMLC [id number] [facility] 2023-05-14 00:00:00 2023-05-14 00:00:00 OFFICE VISIT ESTAB PT LEVEL 4 STLMLC STLMLC [id number] [facility] 2023-05-07 00:00:00 2023-05-07 00:00:00 (TEL) STLMLC STLMLC [id number] [facility] 2023-05-03 00:00:00 2023-05-03 00:00:00 (TEL) STLMLC STLMLC [id number] [facility] 2023-03-19 00:00:00 2023-03-19 00:00:00 (TEL) STLMLC STLMLC [id number] [facility] 2023-02-12 00:00:00 2023-02-12 00:00:00 OFFICE VISIT ESTAB PT LEVEL 4 STLMLC STLMLC [id number] [facility] 2023-02-12 00:00:00 2023-02-12 00:00:00 SUB ANNUAL MCR WELLNESS VISIT STLMLC STLMLC [id number] [facility] 2022-07-20 00:00:00 2022-07-20 00:00:00 (TEL) STLMLC STLMLC [id number] [facility] 2022-07-03 00:00:00 2022-07-03 00:00:00 OFFICE VISIT ESTAB PT LEVEL 4 STLMLC STLMLC [id number] [facility] 2022-03-27 00:00:00 2022-03-27 00:00:00 (TEL) STLMLC STLMLC [id number] [facility] 2022-03-24 00:00:00 2022-03-24 00:00:00 (TEL) STLMLC STLMLC [id number] [facility] 2022-03-22 00:00:00 2022-03-22 00:00:00 (TEL) STLMLC STLMLC [id number] [facility] 2022-02-13 00:00:00 2022-02-13 00:00:00 (TEL) STLMLC STLMLC [id number] [facility] 2022-01-17 00:00:00 2022-01-17 00:00:00 OFFICE VISIT EST PT LEVEL 3 STLMLC STLMLC [id number] [facility] 2022-01-17 00:00:00 2022-01-17 00:00:00 SUB ANNUAL MCR WELLNESS VISIT STLMLC STLMLC [id number] [facility] 2021-09-12 00:00:00 2021-09-12 00:00:00 OFFICE VISIT ESTAB PT LEVEL 4 STLMLC STLMLC [id number] [facility] 2021-07-16 00:00:00 2021-07-16 00:00:00 (TEL) STLMLC STLMLC [id number] [facility] 2021-07-12 00:00:00 2021-07-12 00:00:00 (TEL) STLMLC STLMLC [id number] [facility] 2021-06-14 00:00:00 2021-06-14 00:00:00 OFFICE VISIT ESTAB PT LEVEL 4 STLMLC STLMLC [id number] [facility] 2021-03-14 00:00:00 2021-03-14 00:00:00 Outpatient STLMLC STLMLC [id number] [facility] 2020-11-12 00:00:00 2020-11-12 00:00:00 Outpatient STLMLC STLMLC [id number] [facility] 2020-08-25 00:00:00 2020-08-25 00:00:00 Outpatient STLMLC STLMLC [id number] [facility] 2020-08-11 00:00:00 2020-08-11 00:00:00 Outpatient STLMLC STLMLC [id number] [facility] 2020-03-18 10:20:00 2020-03-18 10:20:[address] [facility] [id number] [facility] 2020-03-18 10:00:00 2020-03-18 10:00:[address] [facility] [id number] [facility] 2020-02-26 13:31:00 2020-02-26 13:31:[address] [facility] [id number] [facility] 2020-01-06 14:00:00 2020-01-06 14:00:00 [facility] [id number] [facility] 2019-12-27 21:51:00 2019-12-27 21:51:00 [facility] [facility] [place] [facility] [id number] [facility] 2019-12-21 19:24:00 2019-12-21 19:24:[address] [facility] [id number] [facility] 2019-09-26 08:40:00 2019-09-26 08:40:[address] [facility] [id number] [facility] 2019-08-08 10:20:00 2019-08-08 10:20:00 [facility] [id number] [facility] 2019-06-22 17:49:00 2019-06-22 17:49:00 [facility] [id number] [facility] 2019-06-20 14:20:00 2019-06-20 14:20:00 [facility] [id number] [facility] 2019-05-09 11:00:00 2019-05-09 11:00:00 [facility] [id number] [facility] 2019-03-05 10:20:00 2019-03-05 10:20:00 [facility] [id number] [facility] 2019-02-04 10:20:00 2019-02-04 10:20:00 [facility] [id number] [facility] 2019-01-30 09:33:00 2019-01-30 09:33:00 [facility] [id number] [facility] 2018-10-17 11:00:00 2018-10-17 11:00:00 [facility] [place] [facility] [id number] [facility] 2018-09-21 17:58:00 2018-09-21 17:58:[address] [facility] [place] [facility] [id number] [facility] 2018-09-17 14:30:00 2018-09-17 14:30:[address] [facility] [facility] [id number] [facility] 2018-07-31 10:54:00 2018-07-31 10:54:00 [facility] [id number] [facility] 2018-05-03 10:30:00 2018-05-03 10:30:00 [facility] [id number] [facility] 2018-04-11 01:34:00 2018-04-11 01:34:00 [facility] [id number] [facility] 2018-03-25 18:00:00 2018-03-25 18:00:00 [facility] [id number] [facility] 2018-03-22 10:00:00 2018-03-22 10:00:00 [facility] [id number] [facility] Results Test Description Test Time Test Comments Results Result Co mments Source ALBUMIN/CREATININE RATIO, RANDOM [id number] 00:00:00* Test Item Value Reference Range Interpretation Comme nts HEMOGLOBIN A1c (test code = 4548-4) 6.1 % See_Comment H [Automated messa Smallaa] The system which generated this result transmitted reference range: 4.2-5.6 %. The reference range was not used to interpret this result as normal/abnormal. TSH RFLX FT4 AND FT3 (test code = 72775-6) 2.750 UIU/ML See_Comment [Automated message] The system which generated this result transmitted reference range: 0.400-4.100 UIU/ML. The reference range was not used to interpret this result as normal/abnormal. CALC LDL CHOL (test code = 65759-1) 93 MG/DL See_Comment [Automated messa ge] The system which generated this result transmitted reference range: <100 MG/DL. The reference range was not used to interpret this result as normal/abnormal. CHOLESTEROL (test code = 2093-3) 168 MG/DL See_Comment [Automated 800razorsa ge] The system which generated this result transmitted reference range: <200 MG/DL. The reference range was not used to interpret this result as normal/abnormal. HDL CHOLESTEROL (test code = 2085-9) 52 MG/DL See_Comment [Automated 800razorsa ge] The system which generated this result transmitted reference range: >39 MG/DL. The reference range was not used to interpret this result as normal/abnormal. RISK RATIO LDL/HDL (test code = 40353-2) 1.79 RATIO See_Comment [Automated message] The system which generated this result transmitted reference range: <3.22 RATIO. The reference range was not used to interpret this result as normal/abnormal. TRIGLYCERIDES (test code = 2571-8) 124 MG/DL See_Comment [Automated 800razors[employer] ge] The system which generated this result transmitted reference range: <150 MG/DL. The reference range was not used to interpret this result as normal/abnormal. BASOPHILS (test code = 14450-3) 0.8 % DIAGNOSIS: (test code = 10399-8) (NOTE) COMMENTS (test code = 58666-9) (NOTE) EOSINOPHILS (test code = 85482-8) 0.9 % HEMATOCRIT (test code = 23855-3) 42.6 % See_Comment [Automated 800raz[employer] ge] The system which generated this result transmitted reference range: 34.0-45.0 %. The reference range was not used to interpret this result as normal/abnormal. HEMOGLOBIN (test code = 718-7) 14.2 G/DL See_Comment [Automated 800[employer] ge] The system which generated this result transmitted reference range: 11.5-15.5 G/DL. The reference range was not used to interpret this result as normal/abnormal. LYMPHOCYTES (test code = 20615-1) 41.5 % MCH (test code = 11188-9) 29.9 PG See_Comment [Automated messa ge] The system which generated this result transmitted reference range: 25.0-33.0 PG. The reference range was not used to interpret this result as normal/abnormal. MCHC (test code = 45422-4) 33.3 G/DL See_Comment [Automated messa ge] The system which generated this result transmitted reference range: 31.0-36.0 G/DL. The reference range was not used to interpret this result as normal/abnormal. MCV (test code = 80570-6) 89.7 fL See_Comment [Automated messa ge] The system which generated this result transmitted reference range: 80.0-99.0 fL. The reference range was not used to interpret this result as normal/abnormal. MICROSCOPIC DESCRIPTION: (test code = 17468-2) (NOTE) MONOCYTES (test code = 16807-5) 26.4 % NEUTROPHILS (test code = 04018-4) 30.1 % NUCLEATED RBCS (test code = 49931-8) 0.0 /100 WBC'S See_Comment [Automated message] The system which generated this result transmitted reference range: 0.0 /100 WBC'S. The reference range was not used to interpret this result as normal/abnormal. PATHOLOGIST: (test code = 39702-6) (NOTE) PLATELET COUNT (test code = 13769-5) 154 K/UL See_Comment [Automated messa ge] The system which generated this result transmitted reference range: 130-400 K/UL. The reference range was not used to interpret this result as normal/abnormal. RBC (test code = 22069-1) 4.75 M/UL See_Comment [Automated messa ge] The system which generated this result transmitted reference range: 3.80-5.40 M/UL. The reference range was not used to interpret this result as normal/abnormal. RDW (test code = 03578-5) 13.0 % See_Comment [Automated messa ge] The system which generated this result transmitted reference range: 11.5-15.0 %. The reference range was not used to interpret this result as normal/abnormal. WBC (test code = 18505-3) 6.6 K/UL See_Comment [Automated messa ge] The system which generated this result transmitted reference range: 3.5-11.0 K/UL. The reference range was not used to interpret this result as normal/abnormal. ALBUMIN (test code = 1751-7) 4.7 G/DL See_Comment [Automated messa ge] The system which generated this result transmitted reference range: 3.5-5.2 G/DL. The reference range was not used to interpret this result as normal/abnormal. ALKALINE PHOSPHATASE (test code = 6768-6) 62 U/L See_Comment [Automated message] The system which generated this result transmitted reference range: 40-142 U/L. The reference range was not used to interpret this result as normal/abnormal. BILIRUBIN, TOTAL (test code = 1975-2) 0.4 MG/DL See_Comment [Automated messa ge] The system which generated this result transmitted reference range: <=1.2 MG/DL. The reference range was not used to interpret this result as normal/abnormal. BUN (test code = 3094-0) 17 MG/DL See_Comment [Automated messa ge] The system which generated this result transmitted reference range: 8-23 MG/DL. The reference range was not used to interpret this result as normal/abnormal. CALCIUM (test code = 89938-3) 9.8 MG/DL See_Comment [Automated messa ge] The system which generated this result transmitted reference range: 8.5-10.5 MG/DL. The reference range was not used to interpret this result as normal/abnormal. CALC A/G RATIO (test code = 1759-0) 1.6 RATIO See_Comment [Automated messa ge] The system which generated this result transmitted reference range: 1.0-2.6 RATIO. The reference range was not used to interpret this result as normal/abnormal. CALC BUN/CREAT (test code = 3097-3) 21 RATIO See_Comment [Automated messa ge] The system which generated this result transmitted reference range: 6-28 RATIO. The reference range was not used to interpret this result as normal/abnormal. CALC GLOBULIN (test code = 58652-7) 3.0 G/DL See_Comment [Automated messa ge] The system which generated this result transmitted reference range: 1.9-3.7 G/DL. The reference range was not used to interpret this result as normal/abnormal. CARBON DIOXIDE (test code = 1962-8) 26 MEQ/L See_Comment [Automated messa ge] The system which generated this result transmitted reference range: 19-31 MEQ/L. The reference range was not used to interpret this result as normal/abnormal. CHLORIDE (test code = 2074-0) 104 MEQ/L See_Comment [Automated messa ge] The system which generated this result transmitted reference range: 95-107 MEQ/L. The reference range was not used to interpret this result as normal/abnormal. CREATININE (test code = 2160-0) 0.82 MG/DL See_Comment [Automated messa ge] The system which generated this result transmitted reference range: 0.60-1.30 MG/DL. The reference range was not used to interpret this result as normal/abnormal. eGFR (2020 CKD-EPI) (test code = 64772-2) 74 ML/MIN/1.73 See_Comment [Automated message] The system which generated this result transmitted reference range: >60 ML/MIN/1.73. The reference range was not used to interpret this result as normal/abnormal. GLUCOSE (test code = 1558-6) 107 MG/DL See_Comment H [Automated messa ge] The system which generated this result transmitted reference range: 70-99 MG/DL. The reference range was not used to interpret this result as normal/abnormal. POTASSIUM (test code = 2823-3) 4.1 MEQ/L See_Comment [Automated messa ge] The system which generated this result transmitted reference range: 3.5-5.4 MEQ/L. The reference range was not used to interpret this result as normal/abnormal. PROTEIN, TOTAL (test code = 2885-2) 7.7 G/DL See_Comment [Automated messa ge] The system which generated this result transmitted reference range: 6.1-8.3 G/DL. The reference range was not used to interpret this result as normal/abnormal. AST (test code = 1920-8) 19 U/L See_Comment [Automated messa ge] The system which generated this result transmitted reference range: 9-40 U/L. The reference range was not used to interpret this result as normal/abnormal. ALT (test code = 1742-6) 14 U/L See_Comment [Automated messa ge] The system which generated this result transmitted reference range: 5-40 U/L. The reference range was not used to interpret this result as normal/abnormal. SODIUM (test code = 2951-2) 141 MEQ/L See_Comment [Automated messa ge] The system which generated this result transmitted reference range: 133-146 MEQ/L. The reference range was not used to interpret this result as normal/abnormal. ALBUMIN, URINE, RANDOM (test code = 74037-6) 0.9 MG/DL NOT ESTAB MG/DL CALC ALBUMIN/CREAT, RND (test code = 02596-1) 9 MG/G See_Comment [Automated messa ge] The system which generated this result transmitted reference range: <30 MG/G. The reference range was not used to interpret this result as normal/abnormal. CREATININE, URINE, CONC. (test code = 2161-8) 97.4 MG/DL NOT ESTAB MG/DL PATHOLOGIST SMEAR [id number] 00:00:00* Test Item Value Reference Range Interpretation Comme nts BASOPHILS (test code = 37523-8) 0.6 % COMMENTS (test code = 24612-6) (NOTE) DIAGNOSIS: (test code = 92166-3) (NOTE) EOSINOPHILS (test code = 53387-2) 1.0 % HEMATOCRIT (test code = 13610-4) 41.7 % See_Comment [Automated messa ge] The system which generated this result transmitted reference range: 34.0-45.0 %. The reference range was not used to interpret this result as normal/abnormal. HEMOGLOBIN (test code = 718-7) 14.2 G/DL See_Comment [Automated messa ge] The system which generated this result transmitted reference range: 11.5-15.5 G/DL. The reference range was not used to interpret this result as normal/abnormal. LYMPHOCYTES (test code = 04870-3) 39.7 % MCH (test code = 48061-7) 30.4 PG See_Comment [Automated messa ge] The system which generated this result transmitted reference range: 25.0-33.0 PG. The reference range was not used to interpret this result as normal/abnormal. MCHC (test code = 40353-1) 34.1 G/DL See_Comment [Automated messa ge] The system which generated this result transmitted reference range: 31.0-36.0 G/DL. The reference range was not used to interpret this result as normal/abnormal. MCV (test code = 19204-3) 89.3 fL See_Comment [Automated messa ge] The system which generated this result transmitted reference range: 80.0-99.0 fL. The reference range was not used to interpret this result as normal/abnormal. MICROSCOPIC DESCRIPTION: (test code = 70767-8) (NOTE) MONOCYTES (test code = 99317-0) 24.1 % NEUTROPHILS (test code = 87464-0) 34.4 % NUCLEATED RBCS (test code = 46122-7) 0.0 /100 WBC'S See_Comment [Automated messa ge] The system which generated this result transmitted reference range: 0.0 /100 WBC'S. The reference range was not used to interpret this result as normal/abnormal. PATHOLOGIST: (test code = 88797-1) (NOTE) PLATELET COUNT (test code = 93292-7) 156 K/UL See_Comment [Automated messa ge] The system which generated this result transmitted reference range: 130-400 K/UL. The reference range was not used to interpret this result as normal/abnormal. RBC (test code = 06827-8) 4.67 M/UL See_Comment [Automated messa ge] The system which generated this result transmitted reference range: 3.80-5.40 M/UL. The reference range was not used to interpret this result as normal/abnormal. RDW (test code = 00968-2) 13.2 % See_Comment [Automated messa ge] The system which generated this result transmitted reference range: 11.5-15.0 %. The reference range was not used to interpret this result as normal/abnormal. WBC (test code = 72268-3) 5.1 K/UL See_Comment [Automated messa ge] The system which generated this result transmitted reference range: 3.5-11.0 K/UL. The reference range was not used to interpret this result as normal/abnormal. SURGICAL PATHOLOGY [id number] 00:00:00* Test Item Value Reference Range Interpretation Comme nts CLINICAL DATA: (test code = 03307-2) (NOTE) DIAGNOSIS: (test code = 07833-3) (NOTE) GROSS DESCRIPTION: (test cod e = 11904-3) (NOTE) MICROSCOPIC DESCRIPTION: (te st code = 49835-3) (NOTE) PATHOLOGIST: (test code = 88292-6) (NOTE)
--- NOTE | 2024-10-23 20:17 | EDPHYS ---
Physician Documentation [facility] Name: Afsaneh Wilkes Age: 79 yrs Sex: Female : 1945 Arrival Date: 10/23/2024 Time: 17:45 Bed 11 Private MD: ED Physician Kian Meyers HPI: 10/23 19:23 This 79 yrs old Female presents to ER via Ambulatory with complaints of Elbow Injury. sb4 Historical: - Allergies: 18:28 No Known Drug Allergies; hb - PMHx: 18:28 Hyperlipidemia; Hypertension; Hearing Impaired; hb - PSHx: 18:28 Cholecystectomy; hb - Immunization history:: Adult Immunizations up to date. - Infectious Disease History:: Denies. - Social history:: Smoking status: Patient denies any tobacco usage or history of. ROS: 19:23 Constitutional: Negative for fever, chills, and weight loss, sb4 19:23 MS/extremity: Positive for pain, of the right elbow, 19:23 All other systems are negative, Vital Signs: 18:27 BP 143 / 75; Pulse 76; Resp 16; Temp 98; Pulse Ox 98% on R/A; Pain 10/10; hb 18:27 Pain Scale: Adult hb MDM: 18:07 Medical Screening Exam initiated sb4 20:17 ED course: patient eloped prior to my assessment. sb4 Administered Medications: No medications were administered Disposition: 20:18 Chart complete. sb4 20:41 Co-signature as Attending Physician, Kian Meyers MD I reviewed the patient's care rt provided by the Advanced Practice Provider and agree with the diagnosis and treatment plan. Disposition Summary: 10/23/24 20:16 Eloped Notes: Disposition: before being seen by provider br2 Reason: (see nurse's notes) br2 Signatures: Dispatcher [employer] EDMS Teressa Jason RN RN hb Nela Claire, PAMandiC PAMandiC sb4 Kian Meyers MD MD rt Belinda Mir RN RN br2 Corrections: (The following items were deleted from the chart) 19:43 18:26 Elbow Right 3 View+RAD.RAD.BRZ ordered. EDMS EDMS 20:18 19:23 Patient reports pain in her right elbow. States that she injured it a while back sb4 but did not seek medical attention. States the pain began again 2 days ago, no reinjury. sb4
--- NOTE | 2024-10-23 20:17 | ER ---
Nurse's Notes [facility] Name: Afsaneh Wilkes Age: 79 yrs Sex: Female : 1945 Arrival Date: 10/23/2024 Time: 17:45 Bed 11 Private MD: Diagnosis: Presentation: 10/23 18:27 Chief complaint: Right elbow pain x 2 days. Denies recent injury but had remote fall hb onto right elbow.. Coronavirus screen: At this time, the client does not indicate any symptoms associated with coronavirus-19. Ebola Screen: No symptoms or risks identified at this time. Initial Sepsis Screen: Does the patient meet any 2 criteria? No. Patient's initial sepsis screen is negative. Does the patient have a suspected source of infection? No. Patient's initial sepsis screen is negative. Risk Assessment: Do you want to hurt yourself or someone else? Patient reports no desire to harm self or others. Onset of symptoms was October 21, 2024. 18:27 Method Of Arrival: Ambulatory hb 18:27 Acuity: BENITO 4 hb 18:29 Note per diem interpreter video call used. hb Historical: - Allergies: 18:28 No Known Drug Allergies; hb - PMHx: 18:28 Hyperlipidemia; Hypertension; Hearing Impaired; hb - PSHx: 18:28 Cholecystectomy; hb - Immunization history:: Adult Immunizations up to date. - Infectious Disease History:: Denies. - Social history:: Smoking status: Patient denies any tobacco usage or history of. Vital Signs: 18:27 BP 143 / 75; Pulse 76; Resp 16; Temp 98; Pulse Ox 98% on R/A; Pain 10/10; hb 18:27 Pain Scale: Adult hb ED Course: 17:52 Patient arrived in ED. cj3 17:59 [facility] sb[facility] 17:59 Kian Meyers MD is Attending Physician. sb4 18:28 Triage completed. hb 18:29 Arm band placed on. hb Administered Medications: No medications were administered Outcome: 20:16 Patient left the ED. br2 Signatures: Teressa Jason RN RN hb Brown, Sophia, PA-C PA-C sb4 Belinda Mir RN RN br2 Viridiana Cristina cj3
[2024-10-23 20:19] VITALS: BP 143/75; TEMP 98; O2SAT 98
== END 2024-10-23 20:16 | disposition left against medical advice (07) ==
LOC: ER 17:45
DX: Z53.21 Procedure and treatment not carried out due to patient leaving prior to being seen by health care provider (principal)
CPT/HCPCS: 99281